=== PATIENT | female | born 2000 | race Caucasian/White ===

== ENCOUNTER → 2022-12-02 09:13 | Outpatient (BNVA) | payer MEDICARE, MEDICAID, SELFPAY | PROVIDERS: PCP Pediatrics; Visit Provider Urology | DX: K92.9 Disease of digestive system, unspecified (principal); N39.9 Disorder of urinary system, unspecified | CPT/HCPCS: 99202 ==

== ENCOUNTER 2023-04-22 08:16 | Outpatient (AMB) | payer MEDICARE, MEDICAID, SELFPAY ==
--- NOTE | 2023-04-22 08:16 | MHC.OFFVIS ---
Intake Intake Visit Reasons: Incontinence Intake Note: Patient presents for tele visit for incontinence ? retention Current Medication: Doxazosin Blood Thinners: none *patient is non verbal Box Sealing Machine Operator Required: Yes Box Sealing Machine Operator Name: Belinda Accompanied by: Mother Allergies adhesive [ADHESIVE] Allergy (Unknown, Unverified 04/22/23 08:16) HIVES amoxicillin [From AUGMENTIN] Allergy (Unknown, Unverified 04/22/23 08:16) DIARRHEA clavulanic acid [From AUGMENTIN] Allergy (Unknown, Unverified 04/22/23 08:16) DIARRHEA fluoxetine [From PROZAC] Adverse Reaction (Unknown, Unverified 04/22/23 08:16) BEHAVIORAL CHANGES HPI HPI Comments History of Present Illness Details Karen is a nonverbal developmentally delayed female. Accompanied by her parents. She is a patient of . She is seen for the following urologic conditions - dysfunctional elimination syndrome Telemedicine Evaluation 15 min Consultation [employer] attempted Dysfunctional elimination syndrome Longstanding - background of developmental delay with nonverbal presentation and possible cerebral palsy Estimated developmental age 18 months to 1 years Primarily constipation in nature Has episodes of difficulty with urination - with holding Appear to be temporally related to 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 low-dose doxazosin pill which can be crushed and baclofen for muscle relaxation To be used on occasions when she appears to have exacerbation of pelvic floor spasm [facility] Medical History (Updated 04/22/23 @ 09:04 by Rashaun Swenson MD) Urinary disorder Diplegic cerebral palsy Autism Genetic disorder Review of Systems Const All systems reviewed & are unremarkable except as noted in HPI and below Reports no additional complaints Resp Reports no additional complaints GI Reports no additional complaints Reports as per HPI Musc Reports no additional complaints Physical Exam Telemedicine evaluation Appropriate responses Regular breathing rate and rhythm HEENT Head: Yes normal to inspection Ears: hearing grossly normal bilaterally Eyes General: appearance normal, both eyes and all related structures Neck Neck: Yes normal visual inspection Chest Chest palpation & inspection: normal inspection of the chest Resp Effort & Inspection: normal respiratory effort and able to speak in complete sentences Assessment & Plan Assessment & Plan (1) Dysfunctional elimination syndrome: Code(s): K92.9 - Disease of digestive system, unspecified; N39.9 - Disorder of urinary system, unspecified (2) Urinary disorder: Code(s): N39.9 - Disorder of urinary system, unspecified Plan 6m f/u Medications: Refilled doxazosin Used when inability to urinate 2 mg PO BEDTIME 90 days PRN 90 tabs 2RF retention K92.9 - Disease of digestive system, unspecified, N39.9 - Disorder of urinary system, unspecified Patient Instructions: Imaging studies, laboratory and physical exam results were discussed and reviewed in detail. No major barriers to patient understanding were identified. An opportunity to ask questions regarding the treatment plan was provided. All questions were answered. The patient expressed understanding and agreement with the above treatment plan. The patient is aware they should contact our office by phone for worsening of their current condition or the appearance of new urologic symptoms. Compliance is encouraged with any medications and followup testing that is ordered. It is a privilege to participate in the urologic care of your patient. If you have any questions or concerns regarding treatment for the above conditions, or other urologic issues, please do not hesitate to contact me. The office telephone contact is [phone]. This note is constructed using voice recognition software. While every effort has been made to ensure accuracy slate splitting supervisor errors may have been included. Yours sincerely, Dr Rashaun Swenson MD, [facility] - Urology Providers of Expert, Compassionate Care for the Genitourinary System Telehealth Telehealth Location of provider rendering services: practice address Location of patient: address on file Patient Identification confirmed using: Name, : Yes Telehealth method: voice only Patient verbally consented to treatment: Yes Patient verbally consented to billing insurance company: Yes Patient informed of any privacy concerns related to visit: Yes Coding Level of Care Code Tele Est Pt Level 3 (24144) Diagnoses Dysfunctional elimination syndrome K92.9; N39.9 Urinary disorder N39.9
== END 2023-04-22 09:15 | disposition home or self-care (01) ==
LOC: HO.HUSH 08:16
PROVIDERS: PCP Pediatrics; Visit Provider Urology
DX: K92.9 Disease of digestive system, unspecified (principal); N39.9 Disorder of urinary system, unspecified
CPT/HCPCS: 99442

== ENCOUNTER → 2023-04-22 08:16 | Outpatient (BNVA) | payer MEDICARE, MEDICAID, SELFPAY | PROVIDERS: PCP Pediatrics; Visit Provider Urology ==

== ENCOUNTER 2023-10-10 16:47 | Emergency (ER) | payer MEDICARE, MEDICAID, SELFPAY ==
--- NOTE | 2023-10-10 17:12 | ED_ITS ---
HPI - General Adult General Chief complaint: Urogenital-Female Stated complaint: hasn't voided in 24 hrs Time Seen by Provider: 10/10/23 18:18 Source: family Mode of arrival: wheelchair Limitations: altered mental status History of Present Illness HPI narrative: Patient with dysfunctional elimination syndrome nonverbal brought by family as the noticed that patient dependent not wet for last 24 hours this has happened in the past and patient just urinated after that per family patient is drinking fluids no vomiting no diarrhea bladder scan done in the ER showed 108 cc urine Related Data Home Medications Medication Instructions Recorded Confirmed clonidine HCl 0.2 mg tablet 0.2 mg PO BEDTIME 12/02/22 lorazepam 0.5 mg tablet 0.5 mg PO BID 12/02/22 nirmatrelvir 300 mg (150 mg 3 ea PO BID 12/02/22 x2)-ritonavir 100 mg tablet,dose pack (Paxlovid) norethindrone acetate 1 mg-ethinyl 1 tab PO DAILY 12/02/22 estradiol 20 mcg tablet (Junel) sertraline 50 mg tablet 50 mg PO DAILY 04/22/23 sumatriptan succinate 50 mg tablet mg PO 04/22/23 Previous Rx's Medication Instructions Recorded baclofen 5 mg tablet 5 mg PO Q12H PRN retention 30 days 12/02/22 #60 tabs doxazosin 2 mg tablet 2 mg PO BEDTIME PRN retention 90 04/22/23 days #90 tabs Allergies Allergy/AdvReac Type Severity Reaction Status Date / Time adhesive [ADHESIVE] Allergy Unknown HIVES Unverified 04/22/23 08:16 amoxicillin [From AUGMENTIN] Allergy Unknown DIARRHEA Unverified 04/22/23 08:16 clavulanic acid Allergy Unknown DIARRHEA Unverified 04/22/23 08:16 [From AUGMENTIN] fluoxetine [From PROZAC] AdvReac Unknown BEHAVIORAL Unverified 04/22/23 08:16 CHANGES Review of Systems 2 Review of Systems: Yes Unobtainable due to mental status PMFSH Past Medical History Medical History Urinary disorder Diplegic cerebral palsy Autism Genetic disorder Social History Social History Smoked in Last 30 Days: No Use of substances other than those prescribed or required for medical reasons: No Advance Directives: No Advance Directives Information Provided: No Patient : No Physical Exam ED Vital Signs: Vital Signs - 24 hr 10/10/23 17:13 10/10/23 19:49 10/10/23 21:43 Temperature 97.8 F 97.5 F 97.5 F Pulse Rate 116 H 101 H 90 Respiratory Rate 20 18 16 Blood Pressure 128/86 144/90 H 121/79 Pulse Oximetry 96 99 100 Oxygen Delivery Method Room Air Room Air Room Air 10/10/23 21:43 Temperature 97.5 F Pulse Rate 90 Respiratory Rate 16 Blood Pressure 121/79 Pulse Oximetry 100 Oxygen Delivery Method Room Air BMI result Body Mass Index 21.9 Appearance: Alert. Nonverbal mentally challenged No acute distress. ENT: Pharynx normal. Oral Mucosa moist Neck: Normal inspection. Neck supple. CVS: Normal heart rate and rhythm. Pulses normal. Respiratory: No respiratory distress. Equal air entry bilateral, Abdomen: Soft and nontender. Bowel sounds are present, no mass palpable, no CVA tenderness Skin: Skin warm and dry. Normal skin color. Normal skin turgor. Neuro: Oriented X 3. No motor deficit. Course Course Course Narrative: This is a rapid medical exam: Additional HPI, ROS, PE not included below will be deferred to primary provider. Patient is a 23-year-old nonverbal developmentally delayed female with history of cerebral palsy, autism, dysfunctional elimination syndrome presenting to the ED with father who reports that patient is followed by Dr. Swenson, was recently started on doxazosin. No urine output for 24 hours. Patient awake all night, having increased negative behaviors per dad. He denies fevers. States patient is on OCPs to eliminate her period, but has had breakthrough bleeding this week. Plan: UA, labs Medications Administered Discontinued Medications Generic Name Dose Route Start Last Admin Trade Name Freq PRN Reason Stop Dose Admin Sodium Chloride 1,000 mls @ 999 mls/hr 10/10/23 18:34 10/10/23 21:30 Ns IV 10/10/23 19:34 Infused .Q1H1M ONE Infusion Medical Decision Making Medical Decision Making [facility] Narrative: Patient with decreased urine output with stable labs was given IV fluids and p.o. fluid urine in the ER discharge patient home advised patient to keep child hydrated Lab Data [facility] Lab Attestation statement: I reviewed the patient's lab results. 10/10/23 17:58 10/10/23 17:58 Labs: Lab Results 10/10/23 Range/Units 17:58 WBC 12.1 H (4.8-10.8) X10*3/uL RBC 4.43 (4.20-5.50) X10*6/uL Hgb 9.9 L (12.0-16.0) g/dl Hct 30.5 L (37.0-47.0) % MCV 68.8 L (80.0-98.0) fL MCH 22.3 L (27.0-33.0) pg MCHC 32.5 (31.0-35.0) g/dl RDW 16.6 H (11.0-16.0) % Plt Count 241 (160-400) X10*3/uL MPV 9.9 (9.4-12.3) fL Immature Gran % (Auto) 0.7 H (0.0-0.4) % Neut % (Auto) 81.0 H (45-73) % Lymph % (Auto) 11.7 L (20-40) % Ross % (Auto) 6.0 (2-11) % Eos % (Auto) 0.3 (0-4) % Baso % (Auto) 0.3 (0-2) % Lymph # (Auto) 1.4 (1.2-4.9) X10*3/uL Ross # (Auto) 0.7 (0.1-1.2) X10*3/uL Eos # (Auto) 0.0 (0.0-0.4) X10*3/uL Baso # (Auto) 0.0 (0.0-0.2) X10*3/uL Abs Immat Gran (auto) 0.09 H (0.00-0.03) X10*3/uL Absolute Neuts (auto) 9.8 H (2.0-8.3) x10*3/uL Absolute Nucleated RBC 0.000 (0.0-0.012) X10*3/uL Nucleated RBC % (auto) 0.0 (0.0-0.2) /100WBC Sodium 140 (135-145) mmol/L Potassium 3.3 (3.3-5.1) mmol/L Chloride 109 H (96-108) mmol/L Carbon Dioxide 21 L (22-29) mmol/L Anion Gap 13 (12-20) BUN 16 (9-16) mg/dL Creatinine 0.65 (0.5-1.4) mg/dL Estim Creat Clear Calc 99.8 Estimated GFR > 60 Random Glucose 109 (60-115) mg/dL Calcium 9.0 (8.4-10.2) mg/dL Total Bilirubin 0.6 (0.0-1.0) mg/dL AST 13 (5-31) U/L ALT 12 (0-31) U/L Alkaline Phosphatase 74 (39-117) U/L Total Protein 6.7 (6.5-8.0) g/dL Albumin 3.9 (3.5-5.0) g/dL Discharge Plan Discharge Clinical Impression: Acute urinary retention Patient Disposition: Home, Self-Care Instructions: Acute Urinary Retention in Women (ED) Additional Instructions: Drink plenty of fluid Follow with PCP as needed Prescriptions: No Action norethindrone ac-eth estradiol [08/14 ()] 1-20 mg-mcg tablet 1 tab PO DAILY lorazepam 0.5 mg tablet 0.5 mg PO BID Paxlovid 300 mg (150 mg x 2)-100 mg tablets,dose pack 3 ea PO BID clonidine HCl 0.2 mg tablet 0.2 mg PO BEDTIME baclofen 5 mg tablet 5 mg PO Q12H PRN (Reason: retention) 30 Days Qty: 60 0RF Rx Instructions: Two used for 2 or 3 days when pelvic floor spasm sertraline 50 mg tablet 50 mg PO DAILY sumatriptan succinate 50 mg tablet PO doxazosin 2 mg tablet 2 mg PO BEDTIME PRN (Reason: retention) 90 Days Qty: 90 2RF Rx Instructions: Used when inability to urinate Interventions: ED Discharge Assessment Last Done: 10/10/23 21:43 Discharge Date/Time: 10/10/23 21:44
[2023-10-10 17:13] VITALS: BP 128/86; PULSE 116; RESP 20; TEMP 36.6; O2SAT 96; BMI 21.9
[2023-10-10 18:03] LABS: MANUAL DIFF FLAG NO
[2023-10-10 18:04] LABS: Basophils Percent Auto 0.3 % (0-2); Eosinophils Percent Auto 0.3 % (0-4); Hematocrit 30.5 % (37.0-47.0); Hemoglobin 9.9 g/dl (12.0-16.0); Imm Gran Abs Auto 0.09 X10*3/uL (0.00-0.03); Imm Gran Pct Auto 0.7 % (0.0-0.4); Lymphocytes Absolute Auto 1.4 X10*3/uL (1.2-4.9); Lymphocytes Percent Auto 11.7 % (20-40); Mean Corpuscular HGB Conc 32.5 g/dl (31.0-35.0); Mean Corpuscular Hemoglobin 22.3 pg (27.0-33.0); Mean Corpuscular Volume 68.8 fL (80.0-98.0); Mean Platelet Volume 9.9 fL (9.4-12.3); Monocytes Absolute Auto 0.7 X10*3/uL (0.1-1.2); Neutrophils Absolute Auto 9.8 x10*3/uL (2.0-8.3); Platelet Count 241 X10*3/uL (160-400); Red Blood Count 4.43 X10*6/uL (4.20-5.50); Red Cell Distribution Width 16.6 % (11.0-16.0); White Blood Count 12.1 X10*3/uL (4.8-10.8)
[2023-10-10 18:28] LABS: Alanine Aminotransferase 12 U/L (0-31); Albumin Level 3.9 g/dL (3.5-5.0); Alkaline Phosphatase 74 U/L (39-117); Anion Gap 13 (12-20); Aspartate Amino Transferase 13 U/L (5-31); Bilirubin Total 0.6 mg/dL (0.0-1.0); Blood Urea Nitrogen 16 mg/dL (9-16); Carbon Dioxide 21 mmol/L (22-29); Chloride 109 mmol/L (96-108); Creatinine Clr Calc Pharmacy 99.8; Estimated Glomerular Filt Rate > 60; Glucose Random 109 mg/dL (60-115); Potassium 3.3 mmol/L (3.3-5.1); Sodium 140 mmol/L (135-145); Total Protein 6.7 g/dL (6.5-8.0)
[2023-10-10] MEDS: 0.9 % Sodium Chloride 1,000 ML 999 ML IV (19:31)
--- NOTE | 2023-10-10 19:39 | PC.NURSE ---
this rn assumed care of pt @ 1900. 20g IV placed in L hand pt tolerated well. pt father at bedside to assist with iv placement. IVF infusing
[2023-10-10 19:49] VITALS: BP 144/90; PULSE 101; RESP 18; TEMP 36.4; O2SAT 99
--- NOTE | 2023-10-10 21:20 | PC.NURSE ---
pt able to void, this rn made dr sierra aware. per md plan to discharge
[2023-10-10 21:43] VITALS: BP 121/79; PULSE 90; RESP 16; TEMP 36.4; O2SAT 100
== END 2023-10-10 21:44 | disposition home or self-care (01) ==
PROVIDERS: Registered Nurse Emergency; Emergency Provider Internal Medicine; PCP Pediatrics
DX: R33.9 Retention of urine, unspecified (principal); G80.8 Other cerebral palsy; F84.0 Autistic disorder
CPT/HCPCS: 36415; 80053; 85025; 96360; 96361; 99284

== ENCOUNTER 2023-11-26 11:36 | Outpatient (AMB) | payer MEDICARE, MEDICAID, SELFPAY ==
--- NOTE | 2023-11-26 11:49 | A.OFFVIS_ITS ---
Intake Visit Reasons: 6m follow up Intake Note: Patient is Present for Follow Up Urology Medication: Doxazosin Antibiotic Allergies: Amoxicillin Blood Thinners: Allergies adhesive [ADHESIVE] Allergy (Unknown, Unverified 04/22/23 08:16) HIVES amoxicillin [From AUGMENTIN] Allergy (Unknown, Unverified 04/22/23 08:16) DIARRHEA clavulanic acid [From AUGMENTIN] Allergy (Unknown, Unverified 04/22/23 08:16) DIARRHEA fluoxetine [From PROZAC] Adverse Reaction (Unknown, Unverified 04/22/23 08:16) BEHAVIORAL CHANGES HPI Comments Details: Karen is a nonverbal developmentally delayed female. Accompanied by her parents. She is a patient of . She is seen for the following urologic conditions - dysfunctional elimination syndrome Accompanied by her father Does well with p.r.n. low-dose doxazosin for bladder emptying Understands that many of the issues secondary to high tone pelvic floor Still considering menstrual cycle management Dysfunctional elimination syndrome Longstanding - background of developmental delay with nonverbal presentation and possible cerebral palsy Estimated developmental age 18 months to 3 years Primarily constipation in nature Has episodes of difficulty with urination - with holding Appear to be temporally related to 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 low-dose doxazosin pill which can be crushed and baclofen for muscle relaxation To be used on occasions when she appears to have exacerbation of pelvic floor spasm [facility] Medical History Urinary disorder Diplegic cerebral palsy Autism Genetic disorder Review of Systems Const Denies chills and Denies fever(s) Card Reports no additional complaints and Denies syncope Resp Denies cough GI Denies abdominal pain and Denies heartburn Reports as per HPI and Denies change in libido Neuro Denies syncope Psych Denies change in libido Endo Denies change in libido Physical Exam Const General: cooperative, healthy appearing, comfortable and no acute distress Orientation/consciousness: patient oriented x3 HEENT Face and sinus: Yes normal facial exam Mouth: moist mucous membranes Neck Neck: Yes normal visual inspection, Yes full ROM and Yes trachea midline Chest Chest palpation & inspection: normal inspection of the chest Resp Effort & Inspection: normal respiratory effort, able to speak in complete sentences and no respiratory distress GI Inspection: Yes normal to inspection Back/Spine/Pelvis Cervical Spine: normal cervical lordosis Thoracic/Lumbar Spine: thoracic and lumbar spine normal to inspection Skin General skin exam: no rashes or lesions noted Neuro General: patient oriented x3, gait normal, tone normal and moves all extremities Extrem General: Yes normal to inspection and Yes capillary refill normal Assessment & Plan Assessment & Plan (1) Urinary disorder: Code(s): N39.9 - Disorder of urinary system, unspecified Category: Medical (2) Dysfunctional elimination syndrome: Code(s): K92.9 - Disease of digestive system, unspecified; N39.9 - Disorder of urinary system, unspecified Category: Medical Plan Refill medications Six-month follow-up Patient Instructions: Imaging studies, laboratory and physical exam results were discussed and reviewed in detail. No major barriers to patient understanding were identified. An opportunity to ask questions regarding the treatment plan was provided. All questions were answered. The patient expressed understanding and agreement with the above treatment plan. The patient is aware they should contact our office by phone for worsening of their current condition or the appearance of new urologic symptoms. Compliance is encouraged with any medications and followup testing that is ordered. It is a privilege to participate in the urologic care of your patient. If you have any questions or concerns regarding treatment for the above conditions, or other urologic issues, please do not hesitate to contact me. The office telephone contact is [phone]. This note is constructed using voice recognition software. While every effort has been made to ensure accuracy rn cvicu errors may have been included. Yours sincerely, Dr Rashaun Swenson MD, [facility] - Urology Providers of Expert, Compassionate Care for the Genitourinary System Coding Level of Care Code Est Pt Level 3 (66493) Diagnoses Urinary disorder N39.9 Dysfunctional elimination syndrome K92.9; N39.9
== END 2023-11-26 12:17 | disposition home or self-care (01) ==
PROVIDERS: PCP Pediatrics; Visit Provider Urology
DX: N39.9 Disorder of urinary system, unspecified (principal); K92.9 Disease of digestive system, unspecified
CPT/HCPCS: 99213

== ENCOUNTER → 2023-11-26 11:36 | Outpatient (BNVA) | payer MEDICARE, MEDICAID, SELFPAY | PROVIDERS: PCP Pediatrics; Visit Provider Urology | DX: N39.9 Disorder of urinary system, unspecified (principal); K92.9 Disease of digestive system, unspecified | CPT/HCPCS: 99212 ==

== ENCOUNTER 2024-04-06 11:51 | Outpatient (AMB) | payer MEDICARE, MEDICAID, SELFPAY ==
--- NOTE | 2024-04-06 11:55 | MHC.OFFWIV ---
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 Started Patient Tobacco Use Status: Never used Tobacco Allergies adhesive [ADHESIVE] Allergy (Unknown, Verified 04/06/24 11:56) HIVES amoxicillin [From AUGMENTIN] Allergy (Unknown, Verified 04/06/24 11:56) DIARRHEA clavulanic acid [From AUGMENTIN] Allergy (Unknown, Verified 04/06/24 11:56) DIARRHEA fluoxetine [From PROZAC] Adverse Reaction (Unknown, Verified 04/06/24 11:56) BEHAVIORAL CHANGES Do you need a note to return to daycare/school/sports/work: No HPI HPI Comments History of Present Illness Details 23-year-old female who is nonverbal here with her parents and her twin sister complaining of a cough that has not gone away for the last 10 days. Her sister has also been sick as well as her mother and father. Her sister started taking a Z-Eleuterio a few days ago and his feeling better and her cough is subsiding. Patient's mother denies any nausea vomiting diarrhea or fevers or hearing her wheeze or look like she is in respiratory distress at all. [facility] Medical History Urinary disorder Diplegic cerebral palsy Autism Genetic disorder Social History Patient Tobacco Use Status: Never used Tobacco Review of Systems Const All systems reviewed & are unremarkable except as noted in HPI and below Physical Exam Vital Signs: Last Vital Signs Temp 98.1 F 04/06/24 11:56 Pulse 102 H 04/06/24 11:56 BP 114/82 04/06/24 11:56 Pulse Ox 98 04/06/24 11:56 Oxygen Delivery Method Room Air 04/06/24 11:56 Const General: cooperative, healthy appearing, comfortable and no acute distress Limitations: wheelchair and other limitations (nonverbal) HEENT Head: Yes normal to inspection Ears: hearing grossly normal bilaterally and external ears normal General nose exam: Normal external nose present, Normal nares present and No nasal discharge present Face and sinus: Yes normal facial exam Eyes General: appearance normal, both eyes and all related structures Neck Neck: Yes normal visual inspection Resp Effort & Inspection: normal respiratory effort, able to speak in complete sentences, no respiratory distress, not tachypneic, no tripod positioning and no use of accessory muscles Auscultation: clear to auscultation bilaterally Cardio Rate: regular rate Rhythm: regular rhythm Heart sounds: normal S1 and S2 Skin General skin exam: no rashes or lesions noted Extrem General: Yes normal to inspection and Yes no clubbing, cyanosis or edema Assessment & Plan Assessment & Plan (1) Atypical pneumonia: Code(s): J18.9 - Pneumonia, unspecified organism Plan: Sent liquid azithromycin to pharmacy. Plan See above Medications: New azithromycin take 12.5 mL (500 mg) by mouth today (day 1), then 6.25 mL (250 mg) daily for 4 days (days 2-5) PO 40 mL 0RF Coding Level of Care Code New Pt Level 3 (72043) Diagnoses Atypical pneumonia J18.9
[2024-04-06 11:56] VITALS: BP 114/82; PULSE 102; TEMP 36.7; O2SAT 98
== END 2024-04-06 12:39 | disposition home or self-care (01) ==
PROVIDERS: PCP Pediatrics; Visit Provider Physician Assistant
DX: J18.9 Pneumonia, unspecified organism (principal)
CPT/HCPCS: 99203

== ENCOUNTER 2024-05-27 02:10 | Emergency (ER) | payer MEDICARE, MEDICAID, SELFPAY ==
--- NOTE | ~2024-05-27 | XR_ITS ---
EXAMINATION: XR ABDOMEN KUB CLINICAL INDICATION: Constipation. Abdominal pain. COMPARISON: None available. TECHNIQUE: AP view of the abdomen. FINDINGS: Visualized lung bases are clear. Scattered bowel gas is noted in nondistended intestinal segments. A moderate quantity of stool is noted in the ascending colon. Gas is noted in descending colon with a mild quantity of stool noted in the descending colon. No dystrophic calcifications are definitive urolithiasis identified. XR/XR KUB IMPRESSION: *Moderate quantity of stool within the ascending colon. No intestinal dilatation to specifically suggest obstruction. Electronically signed by: Brent Garcia MD 05/27/2024 04:06 AM EDT
--- NOTE | 2024-05-27 02:21 | ED.GENADULT ---
HPI - General Adult General Chief complaint: General Medical Stated complaint: Behavioral, HX several Autism Time Seen by Provider: 05/27/24 02:21 Source: family Mode of arrival: EMS Limitations: other (Autism) History of Present Illness ED Provider: rigo CARIAS narrative: Patient is severely autistic brought by family for increased agitation which usually happens when she is constipated patient has had small bowel movement earlier today very difficult to say about making her agitated Related Data Home Medications ?Medication ?Instructions ?Recorded ?Confirmed clonidine HCl 0.2 mg tablet 0.2 mg PO BEDTIME 12/02/22 lorazepam 0.5 mg tablet 0.5 mg PO BID 12/02/22 norethindrone acetate 1 mg-ethinyl 1 tab PO DAILY 12/02/22 estradiol 20 mcg tablet (Junel) montelukast 5 mg chewable tablet 5 mg PO DAILY 04/06/24 ondansetron 4 mg disintegrating 4 mg PO Q8H PRN 04/06/24 tablet rimegepant 75 mg disintegrating mg PO 04/06/24 tablet (Nurtec ODT) sertraline 25 mg tablet mg PO 04/06/24 Previous Rx's ?Medication ?Instructions ?Recorded doxazosin 2 mg tablet 2 mg PO BEDTIME PRN retention 90 04/22/23 days #90 tabs azithromycin 200 mg/5 mL oral See Rx Instructions PO .COMPLEX 04/06/24 suspension #40 mL Allergies Allergy/AdvReac Type Severity Reaction Status Date / Time adhesive [ADHESIVE] Allergy Unknown HIVES Verified 05/27/24 02:27 amoxicillin [From AUGMENTIN] Allergy Unknown DIARRHEA Verified 05/27/24 02:27 clavulanic acid Allergy Unknown DIARRHEA Verified 05/27/24 02:27 [From AUGMENTIN] fluoxetine [From PROZAC] AdvReac Unknown BEHAVIORAL Verified 05/27/24 02:27 CHANGES Review of Systems Review of Systems: Yes Unobtainable due to mental status PMFSH Past Medical History Medical History Urinary disorder Diplegic cerebral palsy Autism Genetic disorder Social History Social History Patient Tobacco Use Status: Never used Tobacco Advance Directives: No Advance Directives Information Provided: No Do you have a plan to hurt others: No Plan Physical Exam ED Vital Signs: Vital Signs - 24 hr 05/27/24 04:45 Temperature 98.1 F Pulse Rate 88 Respiratory Rate 20 Blood Pressure 126/78 Pulse Oximetry 97 Oxygen Delivery Method Room Air BMI result Body Mass Index 20.3 Appearance: Alert. Severely autistic ENT: Pharynx normal. Oral Mucosa moist Neck: Normal inspection. Neck supple. CVS: Normal heart rate and rhythm. Pulses normal. Respiratory: No respiratory distress. Equal air entry bilateral, no wheezing/rales/rhonchi Skin: Skin warm and dry. Normal skin color. Normal skin turgor. Extremities: No lower extremity edema. Medications Administered Discontinued Medications Generic Name Dose Route Start Last Admin Trade Name Freq PRN Reason Stop Dose Admin Lorazepam 1 mg 05/27/24 02:24 05/27/24 02:31 Lorazepam 2 Mg/Ml Vial IM 05/27/24 02:25 1 mg STAT STA Administration Medical Decision Making Medical Decision Making MDM Narrative: Patient is autistic with constipation patient had stool softener suppositories at home will use it at home Independent Interpretation I performed an independent interpretation of an: Plain X-Ray Discharge Plan Discharge Clinical Impression: Chronic constipation Patient Disposition: Home, Self-Care Instructions: Constipation (ED) Additional Instructions: Continue stool softener and milk of magnesia Follow up with your PCP Prescriptions: No Action Nurtec ODT 75 mg tablet,disintegrating PO sertraline 25 mg tablet PO ondansetron 4 mg tablet,disintegrating 4 mg PO Q8H PRN montelukast 5 mg tablet,chewable 5 mg PO DAILY azithromycin 200 mg/5 mL suspension for reconstitution See Rx Instructions PO .COMPLEX Qty: 40 0RF Rx Instructions: take 12.5 mL (500 mg) by mouth today (day 1), then 6.25 mL (250 mg) daily for 4 days (days 2-5) PO norethindrone ac-eth estradiol [08/14 (21)] 1-20 mg-mcg tablet 1 tab PO DAILY lorazepam 0.5 mg tablet 0.5 mg PO BID clonidine HCl 0.2 mg tablet 0.2 mg PO BEDTIME doxazosin 2 mg tablet 2 mg PO BEDTIME PRN (Reason: retention) 90 Days Qty: 90 2RF Rx Instructions: Used when inability to urinate Interventions: ED Discharge Assessment Last Done: 05/27/24 04:45 Discharge Date/Time: 05/27/24 04:45 Print Language: Bolivian
[2024-05-27 02:24] VITALS: BMI 20.3
[2024-05-27] MEDS: LORazepam 2 MG/ML VIAL 1 MG IM (02:31)
[2024-05-27 04:45] VITALS: BP 126/78; PULSE 88; RESP 20; TEMP 36.7; O2SAT 97
== END 2024-05-27 04:45 | disposition home or self-care (01) ==
PROVIDERS: Emergency Provider Internal Medicine; PCP Urology
DX: K59.09 Other constipation (principal); R45.1 Restlessness and agitation
CPT/HCPCS: 74018; 99282; 99283; J2060

== ENCOUNTER 2024-05-31 20:49 | Emergency (ER) | payer MEDICARE, MEDICAID, SELFPAY ==
--- NOTE | ~2024-05-31 | CT_ITS ---
EXAMINATION: CT ABDOMEN AND PELVIS WITHOUT CONTRAST CLINICAL INFORMATION: Abdominal pain. COMPARISON: None available. TECHNIQUE: Multidetector volumetric imaging was performed from the superior aspect of the liver through the pubic symphysis. Sagittal and coronal reformatted images were obtained on the technologist's workstation. This CT examination was performed using dose optimization techniques as appropriate, variously including the following: *Automated exposure control *Adjustment of mA and/or kV according to patient size (this includes techniques or standardized protocols for targeted exams where dose is matched to indication/reason for exam; i.e. extremities or head) *Use of iterative reconstruction technique DLP: 438 mGy-cm FINDINGS: LUNG BASES: The visualized lung bases are unremarkable. LIVER, GALLBLADDER, AND BILIARY TREE: The liver is normal in size, shape, and attenuation. No focal hepatic lesion or biliary ductal dilatation is present. The gallbladder is unremarkable with no evidence of radiopaque gallstones, gallbladder wall thickening, or obvious pericholecystic inflammatory changes. PANCREAS: Unremarkable. SPLEEN: Unremarkable. ADRENAL GLANDS: Unremarkable. KIDNEYS AND URETERS: The kidneys are normal in size, shape, and attenuation. No hydronephrosis, hydroureter, or calculi seen. No perinephric stranding. BLADDER: Unremarkable. GASTROINTESTINAL TRACT: There is retained stool. There are prominent fluid-filled small bowel loops. The appendix is visualized and is within normal limits. There is mild thickening of the visualized distal esophagus. ABDOMINAL WALL: No significant hernia is appreciated. LYMPH NODES: Normal. VASCULAR: Unremarkable. PELVIC VISCERA: Unremarkable. OSSEOUS STRUCTURES: Unremarkable. CT/CT abdomen pelvis wo IV con IMPRESSION: 1. Prominent fluid-filled small bowel loops. This is nonspecific and could be related to enteritis. 2. Retained stool. 3. Mild thickening of the visualized distal esophagus. Consider esophagitis. Fleischner guidelines were followed. Electronically signed by: David Snow MD 06/01/2024 02:23 AM ALLIE
[2024-05-31 21:01] VITALS: BP 112/62; BP 124/62; PULSE 104; PULSE 92; RESP 16; TEMP 36.6; O2SAT 96; O2SAT 99; BMI 18.5
--- NOTE | 2024-05-31 23:05 | ED_ITS ---
HPI - General Adult General Chief complaint: General Medical Stated complaint: psych/poss GI, hx autism, cerebralpalsy, nonverbal Time Seen by Provider: 05/31/24 22:15 History of Present Illness HPI narrative: Patient is a 24-year-old female with a history of being mentally challenged. Baseline nonverbal. Got very aggressive with patient's father today. Per father this is very unlike her. Usually there is something wrong. Patient was given a mg of Ativan prior to arrival. Subsequently fell asleep. Currently has no complaints. There has been no change in p.o. intake per family. Patient had bowel movements on a regular basis. Was seen here about a week ago at that time thought to have constipation. Related Data Home Medications ?Medication ?Instructions ?Recorded ?Confirmed clonidine HCl 0.2 mg tablet 0.2 mg PO BEDTIME 12/02/22 lorazepam 0.5 mg tablet 0.5 mg PO BID 12/02/22 norethindrone acetate 1 mg-ethinyl 1 tab PO DAILY 12/02/22 estradiol 20 mcg tablet (Junel) montelukast 5 mg chewable tablet 5 mg PO DAILY 04/06/24 ondansetron 4 mg disintegrating 4 mg PO Q8H PRN 04/06/24 tablet rimegepant 75 mg disintegrating mg PO 04/06/24 tablet (Nurtec ODT) sertraline 25 mg tablet mg PO 04/06/24 Previous Rx's ?Medication ?Instructions ?Recorded doxazosin 2 mg tablet 2 mg PO BEDTIME PRN retention 90 04/22/23 days #90 tabs azithromycin 200 mg/5 mL oral See Rx Instructions PO .COMPLEX 04/06/24 suspension #40 mL Allergies Allergy/AdvReac Type Severity Reaction Status Date / Time adhesive [ADHESIVE] Allergy Unknown HIVES Verified 05/31/24 21:12 amoxicillin [From AUGMENTIN] Allergy Unknown DIARRHEA Verified 05/31/24 21:12 clavulanic acid Allergy Unknown DIARRHEA Verified 05/31/24 21:12 [From AUGMENTIN] fluoxetine [From PROZAC] AdvReac Unknown BEHAVIORAL Verified 05/31/24 21:12 CHANGES Review of Systems 2 Review of Systems: Positive episodes of agitation PMFSH Past Medical History Attestation statement: The following information was validated with the patient. Medical History Urinary disorder Diplegic cerebral palsy Autism Genetic disorder Social History Social History Patient Tobacco Use Status: Never used Tobacco Smoked in Last 30 Days: No Use of substances other than those prescribed or required for medical reasons: No Advance Directives: No Advance Directives Information Provided: No Patient : No Physical Exam ED Vital Signs: Vital Signs - 24 hr 05/31/24 21:01 06/01/24 00:16 Temperature 98 F 97.9 F Pulse Rate 92 81 Respiratory Rate 16 16 Blood Pressure 112/62 137/84 Pulse Oximetry 96 97 Oxygen Delivery Method Room Air Room Air BMI result Body Mass Index 18.5 Appearance: Alert. No acute distress. Eyes: Pupils equal, round and reactive to light. ENT: Pharynx normal. Neck: Normal inspection. Neck supple. No lymph nodes noted. No crepitus CVS: Normal heart rate and rhythm. Pulses normal. Normal S1 and S2 Respiratory: No respiratory distress. Breath sounds normal. No Wheezing. No rales Abdomen: Soft and nontender. No rigidity. No distention. good BS x4 Skin: Skin warm and dry. Normal skin color. Normal skin turgor. Extremities: No lower extremity edema. Neurovascular intact to all extremities. No Lacerations. No Rash Neuro: Arousable contracted Medications Administered Discontinued Medications Generic Name Dose Route Start Last Admin Trade Name Gerardoq PRN Reason Stop Dose Admin Lorazepam 1 mg 05/31/24 23:04 05/31/24 23:13 Lorazepam 1 Mg Tablet PO 05/31/24 23:05 1 mg ONCE ONE Administration Lorazepam 0.5 mg 06/01/24 00:07 06/01/24 00:14 Lorazepam 2 Mg/Ml Vial IM 06/01/24 00:08 0.5 mg ONCE ONE Administration Medical Decision Making Medical Decision Making MDM Narrative: Patient sleeping in the emergency department. No acute distress. Given some Ativan just prior to getting blood drawn. Her test was negative no related issue. Patient's white count is 10. Hemoglobin is 10.8 proximally baseline. Patient's electrolytes are unremarkable. LFTs are normal no evidence for biliary issues. Lipase is 22 no evidence of pancreatitis. COVID flu RSV were all negative. CT scan of the abdomen pelvis was done. The results are still pending. Will try to obtain urine Differential Diagnosis Differential Diagnoses: The differential diagnosis associated with the presentation includes Constipation, urinary tract infection Admission/Observation Consideration of admission/observation: Escalation of care including admission/observation considered Lab Data MDM Lab Attestation statement: I reviewed the patient's lab results. 06/01/24 00:02 06/01/24 00:02 Labs: Lab Results 06/01/24 Range/Units 00:02 WBC 10.1 (4.8-10.8) X10*3/uL RBC 4.71 (4.20-5.50) X10*6/uL Hgb 10.8 L (12.0-16.0) g/dl Hct 33.7 L (37.0-47.0) % MCV 71.5 L (80.0-98.0) fL MCH 22.9 L (27.0-33.0) pg MCHC 32.0 (31.0-35.0) g/dl RDW 18.6 H (11.0-16.0) % Plt Count 286 (160-400) X10*3/uL MPV 9.8 (9.4-12.3) fL Immature Gran % (Auto) 0.3 (0.0-0.4) % Neut % (Auto) 69.0 (45-73) % Lymph % (Auto) 23.6 (20-40) % Patrick % (Auto) 5.6 (2-11) % Eos % (Auto) 0.9 (0-4) % Baso % (Auto) 0.6 (0-2) % Lymph # (Auto) 2.4 (1.2-4.9) X10*3/uL Patrick # (Auto) 0.6 (0.1-1.2) X10*3/uL Eos # (Auto) 0.1 (0.0-0.4) X10*3/uL Baso # (Auto) 0.1 (0.0-0.2) X10*3/uL Abs Immat Gran (auto) 0.03 (0.00-0.03) X10*3/uL Absolute Neuts (auto) 6.9 (2.0-8.3) x10*3/uL Absolute Nucleated RBC 0.000 (0.0-0.012) X10*3/uL Nucleated RBC % (auto) 0.0 (0.0-0.2) /100WBC Sodium 136 (135-145) mmol/L Potassium 3.8 (3.3-5.1) mmol/L Chloride 108 (96-108) mmol/L Carbon Dioxide 21 L (22-29) mmol/L Anion Gap 11 L (12-20) BUN 11 (9-16) mg/dL Creatinine 0.62 (0.5-1.4) mg/dL Estim Creat Clear Calc 96.1 Estimated GFR > 60 Random Glucose 94 (60-115) mg/dL Calcium 8.7 (8.4-10.2) mg/dL Total Bilirubin 0.5 (0.0-1.0) mg/dL Direct Bilirubin 0.1 (0.0-0.5) mg/dL AST 27 (5-31) U/L ALT 20 (0-31) U/L Alkaline Phosphatase 59 (39-117) U/L Total Protein 6.8 (6.5-8.0) g/dL Albumin 3.8 (3.5-5.0) g/dL Lipase 22 (8-78) U/L Beta HCG, Quant < 2 mIU/mL Influenza Type A (PCR) NEGATIVE (Negative) Influenza Type B (PCR) NEGATIVE (Negative) RSV RNA Qual (PCR) NEGATIVE (Negative) SARS-CoV-2 RNA (RT-PCR) NEGATIVE (Negative) External Record Review Previous records evaluated including previous workup. Discharge Plan Discharge Clinical Impression: Colic in adult Patient Disposition: Still a Patient Instructions: Abdominal Pain (ED) Prescriptions: No Action Nurtec ODT 75 mg tablet,disintegrating PO sertraline 25 mg tablet PO ondansetron 4 mg tablet,disintegrating 4 mg PO Q8H PRN montelukast 5 mg tablet,chewable 5 mg PO DAILY azithromycin 200 mg/5 mL suspension for reconstitution See Rx Instructions PO .COMPLEX Qty: 40 0RF Rx Instructions: take 12.5 mL (500 mg) by mouth today (day 1), then 6.25 mL (250 mg) daily for 4 days (days 2-5) PO norethindrone ac-eth estradiol [08/14 (21)] 1-20 mg-mcg tablet 1 tab PO DAILY lorazepam 0.5 mg tablet 0.5 mg PO BID clonidine HCl 0.2 mg tablet 0.2 mg PO BEDTIME doxazosin 2 mg tablet 2 mg PO BEDTIME PRN (Reason: retention) 90 Days Qty: 90 2RF Rx Instructions: Used when inability to urinate Referrals: Bernardo Torrez MD [Primary Care Provider] - 06/06/24 Print Language: Kosovan
[2024-05-31] MEDS: LORazepam 1 MG TABLET PO (23:13)
[2024-06-01 00:12] LABS: MANUAL DIFF FLAG NO
[2024-06-01] MEDS: LORazepam 2 MG/ML VIAL 0.5 MG IM (00:14)
[2024-06-01 00:16] VITALS: BP 137/84; PULSE 81; RESP 16; TEMP 36.6; O2SAT 97
[2024-06-01 00:16] LABS: Basophils Absolute Auto 0.1 X10*3/uL (0.0-0.2); Basophils Percent Auto 0.6 % (0-2); Eosinophils Absolute Auto 0.1 X10*3/uL (0.0-0.4); Eosinophils Percent Auto 0.9 % (0-4); Hematocrit 33.7 % (37.0-47.0); Hemoglobin 10.8 g/dl (12.0-16.0); Imm Gran Abs Auto 0.03 X10*3/uL (0.00-0.03); Imm Gran Pct Auto 0.3 % (0.0-0.4); Lymphocytes Absolute Auto 2.4 X10*3/uL (1.2-4.9); Lymphocytes Percent Auto 23.6 % (20-40); Mean Corpuscular Hemoglobin 22.9 pg (27.0-33.0); Mean Corpuscular Volume 71.5 fL (80.0-98.0); Mean Platelet Volume 9.8 fL (9.4-12.3); Monocytes Absolute Auto 0.6 X10*3/uL (0.1-1.2); Monocytes Percent Auto 5.6 % (2-11); Neutrophils Absolute Auto 6.9 x10*3/uL (2.0-8.3); Platelet Count 286 X10*3/uL (160-400); Red Blood Count 4.71 X10*6/uL (4.20-5.50); Red Cell Distribution Width 18.6 % (11.0-16.0); White Blood Count 10.1 X10*3/uL (4.8-10.8)
[2024-06-01 00:37] LABS: Alanine Aminotransferase 20 U/L (0-31); Albumin Level 3.8 g/dL (3.5-5.0); Alkaline Phosphatase 59 U/L (39-117); Anion Gap 11 (12-20); Aspartate Amino Transferase 27 U/L (5-31); Bilirubin Direct 0.1 mg/dL (0.0-0.5); Bilirubin Total 0.5 mg/dL (0.0-1.0); Blood Urea Nitrogen 11 mg/dL (9-16); Calcium 8.7 mg/dL (8.4-10.2); Carbon Dioxide 21 mmol/L (22-29); Chloride 108 mmol/L (96-108); Creatinine Clr Calc Pharmacy 96.1; Estimated Glomerular Filt Rate > 60; Glucose Random 94 mg/dL (60-115); HCG Quantitative < 2 mIU/mL; Lipase 22 U/L (8-78); Potassium 3.8 mmol/L (3.3-5.1); Sodium 136 mmol/L (135-145); Total Protein 6.8 g/dL (6.5-8.0)
--- NOTE | 2024-06-01 00:53 | PC.NURSE ---
pt still awake and, and bouncing around on the bed. turned off the lights, to try and get her to sleep
[2024-06-01 00:55] LABS: Influenza A PCR NEGATIVE (Negative); Influenza B PCR NEGATIVE (Negative); Resp Syncy Virus RNA Qual PCR NEGATIVE (Negative); SARS COV2 PCR INHOUSE NEGATIVE (Negative)
[2024-06-01 02:59] LABS: Appearance Urine Clear; Color Urine Yellow; Glucose Urine UA Negative (Negative); Leukocyte Esterase Urine Negative (Negative); Nitrite Urine Negative (Negative); PH 6.5 (5.0-9.0); Specific Gravity - Urine 1.025 (1.005-1.025); Urine Blood Negative (Negative); Urine Ketones Trace mg/dL (Negative); Urine Protein Trace mg/dL (Neg-Trace)
[2024-06-01 03:27] LABS: Bacteria Urine None Seen (None Seen); Hyaline Casts Urine 0-2 /LPF (0-2); RBC Urine 0-2 /HPF (0-2); Squamous Epithelial Cell Urine 0-2 /HPF (0-2); WBC Urine 0-5 /HPF (0-5)
[2024-06-01 04:27] VITALS: BP 126/73; PULSE 74; RESP 16; TEMP 36.6; O2SAT 97
== END 2024-06-01 04:29 | disposition home or self-care (01) ==
PROVIDERS: Emergency Provider Emergency Medicine Emergency Medical Services; PCP Pediatrics
DX: R10.84 Generalized abdominal pain (principal); R45.1 Restlessness and agitation; Z03.818 Encounter for observation for suspected exposure to other biological agents ruled out; G80.8 Other cerebral palsy; F84.0 Autistic disorder; R47.01 Aphasia; N39.9 Disorder of urinary system, unspecified; Z79.899 Other long term (current) drug therapy
CPT/HCPCS: 0241U; 36415; 74176; 80048; 80076; 81001; 83690; 84702; 85025; 96372; 99284; J2060

== ENCOUNTER 2024-06-01 11:49 | Outpatient (AMB) | payer MEDICARE, MEDICAID, SELFPAY ==
--- NOTE | 2024-06-01 12:00 | MHC.OFFVIS ---
Intake Visit Reasons: 6m follow up Intake Note: Patient is present for follow up Urology Med:Doxazosin Allergies adhesive [ADHESIVE] Allergy (Unknown, Verified 05/31/24 21:12) HIVES amoxicillin [From AUGMENTIN] Allergy (Unknown, Verified 05/31/24 21:12) DIARRHEA clavulanic acid [From AUGMENTIN] Allergy (Unknown, Verified 05/31/24 21:12) DIARRHEA fluoxetine [From PROZAC] Adverse Reaction (Unknown, Verified 05/31/24 21:12) BEHAVIORAL CHANGES HPI Comments Details: Karen is a nonverbal developmentally delayed female. Accompanied by her parents. She is a patient of . She is seen for the following urologic conditions - dysfunctional elimination syndrome Accompanied by her father Recent aggravation of constipation Appears to be affecting urination They have been using doxazosin p.r.n. Will switch to low-dose daily doxazosin 1 mg Understands that many of the issues secondary to high tone pelvic floor Dysfunctional elimination syndrome Longstanding - background of developmental delay with nonverbal presentation and possible cerebral palsy Estimated developmental age 18 months to 1 years Primarily constipation in nature Has episodes of difficulty with urination - with holding High tone pelvic floor Appear to be temporally related to 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 low-dose doxazosin pill which can be crushed and baclofen for muscle relaxation To be used on occasions when she appears to have exacerbation of pelvic floor spasm PFSH Medical History Urinary disorder Diplegic cerebral palsy Autism Genetic disorder Social History Patient Tobacco Use Status: Never used Tobacco Review of Systems Const Denies chills and Denies fever(s) Card Reports no additional complaints and Denies syncope Resp Denies cough GI Denies abdominal pain and Denies heartburn Reports as per HPI and Denies change in libido Neuro Denies syncope Psych Denies change in libido Endo Denies change in libido Physical Exam Const General: cooperative, healthy appearing, comfortable and no acute distress Orientation/consciousness: patient oriented x3 HEENT Face and sinus: Yes normal facial exam Mouth: moist mucous membranes Neck Neck: Yes normal visual inspection, Yes full ROM and Yes trachea midline Chest Chest palpation & inspection: normal inspection of the chest Resp Effort & Inspection: normal respiratory effort, able to speak in complete sentences and no respiratory distress GI Inspection: Yes normal to inspection Back/Spine/Pelvis Cervical Spine: normal cervical lordosis Thoracic/Lumbar Spine: thoracic and lumbar spine normal to inspection Skin General skin exam: no rashes or lesions noted Neuro General: patient oriented x3, gait normal, tone normal and moves all extremities Extrem General: Yes normal to inspection and Yes capillary refill normal Assessment & Plan Assessment & Plan (1) Dysfunctional elimination syndrome: Code(s): K92.9 - Disease of digestive system, unspecified; N39.9 - Disorder of urinary system, unspecified Category: Medical (2) Urinary disorder: Code(s): N39.9 - Disorder of urinary system, unspecified Category: Medical Plan Decreased doxazosin 1 mg q.h.s. Medications: Changed From doxazosin Used when inability to urinate 2 mg PO BEDTIME 90 days PRN 90 tabs 2RF retention K92.9 - Disease of digestive system, unspecified, N39.9 - Disorder of urinary system, unspecified To doxazosin Use each evening May be crushed 1 mg PO BEDTIME 90 days 90 tabs 1RF retention K92.9 - Disease of digestive system, unspecified, N39.9 - Disorder of urinary system, unspecified Patient Instructions: Imaging studies, laboratory and physical exam results were discussed and reviewed in detail. No major barriers to patient understanding were identified. An opportunity to ask questions regarding the treatment plan was provided. All questions were answered. The patient expressed understanding and agreement with the above treatment plan. The patient is aware they should contact our office by phone for worsening of their current condition or the appearance of new urologic symptoms. Compliance is encouraged with any medications and followup testing that is ordered. It is a privilege to participate in the urologic care of your patient. If you have any questions or concerns regarding treatment for the above conditions, or other urologic issues, please do not hesitate to contact me. The office telephone contact is [phone]. This note is constructed using voice recognition software. While every effort has been made to ensure accuracy consulting sales executive errors may have been included. Yours sincerely, Dr Rashaun Swenson MD, [facility] - Urology Providers of Expert, Compassionate Care for the Genitourinary System Coding Level of Care Code Est Pt Level 3 (38729) Diagnoses Dysfunctional elimination syndrome K92.9; N39.9 Urinary disorder N39.9
== END 2024-06-01 12:17 | disposition home or self-care (01) ==
LOC: HO.HUSH 11:50
PROVIDERS: PCP Pediatrics; Visit Provider Urology
DX: K92.9 Disease of digestive system, unspecified (principal); N39.9 Disorder of urinary system, unspecified
CPT/HCPCS: 99213

== ENCOUNTER → 2024-06-01 11:49 | Outpatient (BNVA) | payer MEDICARE, MEDICAID, SELFPAY | PROVIDERS: PCP Pediatrics; Visit Provider Urology | DX: K92.9 Disease of digestive system, unspecified (principal); N39.9 Disorder of urinary system, unspecified | CPT/HCPCS: 99212 ==

== ENCOUNTER 2024-06-06 07:31 | Observation (INO) | payer MEDICARE, MEDICAID, SELFPAY ==
--- NOTE | ~2024-06-06 | XR_ITS ---
EXAMINATION: XR ABDOMEN KUB CLINICAL INDICATION: 24-year-old female with constipation COMPARISON: CT abdomen from June 06, 2026 TECHNIQUE: AP view of the abdomen. FINDINGS: Seen on the CT scan significant amount of feces in the colon has been resolved. There is nonspecifically dilated loops of small bowel and no evidence of free air XR/XR KUB IMPRESSION: Resolved constipation. Nonspecifically dilated loops of small bowel Electronically signed by: Lazaro Tunrer MD 06/07/2024 11:55 AM [facility]
--- NOTE | ~2024-06-06 | XR_ITS ---
EXAMINATION: XR CHEST CLINICAL INFORMATION: confirm NG tube placement COMPARISON: X-ray dated July 12, 2019 TECHNIQUE: Frontal view of the chest was obtained. FINDINGS: There is an NG tube tip ending in the left upper quadrant abdomen below the left hemidiaphragm. No acute airspace disease. Heart silhouette size is normal. Gas-filled splenic colonic flexure. There is a catheter overlapping the right hemiabdomen not fully included. XR/XR chest 1V IMPRESSION: NG tube probably in the stomach. Electronically signed by: Sujit Connor MD 06/06/2024 11:02 AM [facility] WALTER
--- NOTE | ~2024-06-06 | XR_ITS ---
EXAMINATION: XR CHEST CLINICAL INFORMATION: Enteric tube placement. COMPARISON: Chest radiograph 06/06/2024. TECHNIQUE: Frontal view of the chest was obtained. FINDINGS: A tube projects over the left hemithorax with proximal and distal endings outside of the field of view. An enteric tube is not visualized. Normal appearance of the cardiomediastinal silhouette. No focal consolidation, pleural effusion or pneumothorax. No pulmonary edema. No acute osseous findings. XR/XR chest 1V IMPRESSION: 1. An enteric tube is not visualized, possibly looped in the upper neck. 2. No acute cardiopulmonary findings. Electronically signed by: Megan Ross MD 06/06/2024 09:46 PM EST
--- NOTE | ~2024-06-06 | CT_ITS ---
EXAMINATION: CT ABDOMEN AND PELVIS WITHOUT CONTRAST CLINICAL INFORMATION: Worsening constipation. Concerning obstruction. COMPARISON: CT dated June 01, 2024. TECHNIQUE: Multidetector volumetric imaging was performed from the superior aspect of the liver through the pubic symphysis. Sagittal and coronal reformatted images were obtained on the technologist's workstation. This CT examination was performed using dose optimization techniques as appropriate, variously including the following: *Automated exposure control *Adjustment of mA and/or kV according to patient size (this includes techniques or standardized protocols for targeted exams where dose is matched to indication/reason for exam; i.e. extremities or head) *Use of iterative reconstruction technique DLP: 368 mGy-cm FINDINGS: Inadequate evaluation of the intra-abdominal organs and vascular structures due to lack of IV contrast. LIVER, GALLBLADDER, AND BILIARY TREE: Liver measures 17 cm. No pericholecystic fluid collection or gallbladder wall thickening. No intra or extrahepatic biliary ductal dilatation. PANCREAS: No peripancreatic fluid collections. No main pancreatic ductal dilatation. SPLEEN: Measures 9 cm. ADRENAL GLANDS: No nodular lesions. KIDNEYS AND URETERS: No hydronephrosis or nephrolithiasis. BLADDER: Fluid-filled. GASTROINTESTINAL TRACT: Abundant stool involving mostly the right hemicolon and to a lesser extent rectum. No pneumatosis intestinalis. No air-fluid levels. No pneumoperitoneum. No ascites. Appendix is normal with inspissated secretions. ABDOMINAL WALL: No gross hernia. LYMPH NODES: No gross lymphadenopathy, retroperitoneal or mesenteric. VASCULAR: No aneurysm, abdominal aorta. PELVIC VISCERA: No gross masses. OSSEOUS STRUCTURES: No acute fracture or listhesis in the axial skeleton. No lytic or blastic lesions. CT/CT abdomen pelvis wo IV con IMPRESSION: Abundant stool right hemicolon without intestinal obstruction pattern or stercoralis colitis. Fleischner guidelines were followed. Electronically signed by: Sujit Connor MD 06/06/2024 09:20 AM [facility]
[2024-06-06 07:39] VITALS: PULSE 90; O2SAT 99
[2024-06-06 07:40] VITALS: BP 0/0; PULSE 90; RESP 19; TEMP 36.6; O2SAT 99; BMI 18.3
--- NOTE | 2024-06-06 07:51 | ED_ITS ---
HPI - Abdominal Pain General Chief Complaint: Abdominal Pain Stated Complaint: ABD PAIN X2W, CONSTIPATION,H/O AUTISM PER EMS Time Seen by Provider: 06/06/24 07:39 Source: patient and family (father) Mode of arrival: ambulatory Limitations: other (autism, nonverbal) History of Present Illness ED Provider: LINDA QURESHI PA-C HPI narrative: 24 year old female with pmhx significant for severe autism and cerebral palsy, nonverbal at baseline, presents to the ED today via EMS with father from home for evaluation of constipation. Father reports patient has been striking herself in the head and has been more aggressive with him at home. He states she is typically like this when she is in pain. He reports patient has a history of chronic idiopathic constipation however has not had an issue with this in over 6 years. She used to follow with a GI specialist in [place] however has not seen him in some time as this has been well controlled. States that she used to have NG tubes placed to prevent obstruction and has tolerated these well in the past. Father reports patient has not had a BM in 5 days. He is concerned that she is being overfed at her day program, causing this acute shift in bowel habits. She has been evaluated at our facility for this on 05/27/24 and again on 05/31/24. Imaging did not show evidence of obstruction on either visit. She was placed on a bowel regimen out patient. She has since followed up with her PCP who has started her on magnesium citrate which dad has been administering without improvement. This is patient's 3rd ED visit for this in the last 10 days. Related Data Home Medications ?Medication ?Instructions ?Recorded ?Confirmed clonidine HCl 0.2 mg tablet 0.2 mg PO BEDTIME 12/02/22 06/06/24 lorazepam 0.5 mg tablet 0.5 mg PO BID 12/02/22 06/06/24 montelukast 5 mg chewable tablet 5 mg PO DAILY 04/06/24 06/06/24 ondansetron 4 mg disintegrating 4 mg PO Q8H PRN nausea/vomiting 04/06/24 06/06/24 tablet rimegepant 75 mg disintegrating 75 mg PO DAILY PRN Migraine 04/06/24 06/06/24 tablet (Nurtec ODT) Headache sertraline 25 mg tablet 25 mg PO BID 04/06/24 06/06/24 acetaminophen 325 mg/10.15 mL oral 325 - 650 mg PO DAILY PRN Pain 06/06/24 06/06/24 suspension norethindrone acetate 1 mg-ethinyl 1 tab PO DAILY 06/06/24 06/06/24 estradiol 20 mcg tablet (Aurovela) Previous Rx's ?Medication ?Instructions ?Recorded doxazosin 1 mg tablet 1 mg PO BEDTIME retention 90 days 06/01/24 #90 tabs Allergies Allergy/AdvReac Type Severity Reaction Status Date / Time adhesive [ADHESIVE] Allergy Unknown HIVES Verified 06/06/24 07:47 amoxicillin [From AUGMENTIN] Allergy Unknown DIARRHEA Verified 06/06/24 07:47 clavulanic acid Allergy Unknown DIARRHEA Verified 06/06/24 07:47 [From AUGMENTIN] diphenhydramine Allergy Vomiting Verified 06/06/24 07:48 [From Benadryl] fluoxetine [From PROZAC] AdvReac Unknown BEHAVIORAL Verified 06/06/24 07:47 CHANGES Review of Systems Review of Systems Yes Unobtainable due to mental condition (patient nonverbal) [facility] Past Medical History Source: old records reviewed, obtained from family (father) and nursing notes reviewed Medical History Urinary disorder Diplegic cerebral palsy Autism Genetic disorder Social History Social History Patient Tobacco Use Status: Never used Tobacco Smoked in Last 30 Days: No Use of substances other than those prescribed or required for medical reasons: No Advance Directives: No Advance Directives Information Provided: Yes Do you have a plan to hurt others: No Plan Physical Exam ED Vital Signs: Vital Signs - 24 hr 06/06/24 07:40 06/06/24 14:28 Temperature 98 F 98.0 F Pulse Rate 90 77 Respiratory Rate 19 20 Blood Pressure 0/0 L 97/60 Pulse Oximetry 99 98 Oxygen Delivery Method Room Air Room Air BMI result Body Mass Index 18.3 vital signs stable General: Well appearing, in no acute distress. Skin: Warm, dry, intact. No rashes or lesions. Head: multiple areas of ecchymosis noted to forehead. no palpable skull fracture. no hematoma. EENT: Hearing is intact b/l. Conjunctiva clear. PERRLA. EOM intact. Moist mucous membranes.? Cardiac: Chest wall symmetric. RRR. Lungs: Normal respiratory effort without accessory muscle use. CTA bilaterally. Abdomen: Soft, non-tender, non-distended. No rebound tenderness or guarding. Positive BS x4. Back: No midline spinous or paraspinal tenderness. No step off deformity. Ext: Upper and lower extremities atraumatic, without tenderness, deformity, swelling or erythema. Full ROM throughout. Neuro: AOx3. Normal speech. Ambulating with steady gait. Course Course Course Narrative: 800 -- Patient arrives moaning, there are 3 bruises noted to her forehead as a resulf of her hitting her self. father at bedside attempting to restrain patient. 2 mg IM ativan ordered to prevent patient from harming herself physically. 919 -- CBC without leukocytosis or left shift. Chronic normocytic anemia, stable when compared to priors. H&H above transfusion threshold. Chemistry without acute electrolyte abnormality requiring intervention. No DUNIA. Normal liver function. Beta quant undetectable. I reviewed KUB obtained on 06-18 showing moderate quantity of stool within the ascending colon without evidence of intestinal dilation. I also reviewed CT abdomen/pelvis obtained on 06/01/2024 which shows prominent fluid filled small bowel loops. This was found to be nonspecific and may be related to enteritis. Appendix normal. Retained stool noted. No evidence of obstruction. CT scan obtained today shows abundant stool within the right hemicolon without intestinal obstruction or colitis. > I reached out to on-call GI physician, Dr. Garcia. She is recommending tap water enema to stimulate colon. We also discussed NG tube insertion for Golytely administration which she feels is reasonable as patient tolerated NG tube placement in the past. I also discussed this with my attending Dr. Oliva who agrees. I discussed NG tube insertion with patient's father who has provided consent. > enema ordered > NG tube to be placed by Gage BOLANOS. Golytely ordered. will continue to monitor. 1031 -- NG tube placed by Gage BOLANOS. Patient tolerated well. No complications. CXR confirming placement in stomach. Patient receiving Golytely. enema to start shortly after. will continue to monitor. 1441 -- On re-evaluation, patient lying comfortably in bed. she's received approx 600 Golytely through NG tube. Enema complete. She was able to pass only a small BM after receiving both of these. Will reach out to Dr. Garcia for further recommendation as this is patient's 3rd ED visit in the last 10 days. will continue to monitor. 1505 -- Dr. Garcia recommending admission to medicine. Advises for an additional 600 mL of GoLYTELY. If patient does not clear, recommending Gastrografin enema to rule out left colon obstruction, which can also be beneficial for laxative effect. I discussed this with patient's father who is agreeable to admission. Will reach out to hospitalist. 1511 -- Hospitalist Dr. Albarran has agreed to admission. Medical Decision Making Medical Decision Making [facility] Narrative: 24 year old female with pmhx significant for severe autism and cerebral palsy, nonverbal at baseline, presents to the ED today via EMS with father from home for evaluation of constipation. vital signs stable. please refer to exam portion for findings. Differential diagnosis includes anemia, electrolyte abnormality, dehydration, colitis, constipation, SBO, diverticulosis/ diverticulitis, uti Plan for labs, CT A/P, re-evaluation. Differential Diagnosis Differential Diagnoses: The differential diagnosis associated with the presentation includes as above. Admission/Observation Consideration of admission/observation: Escalation of care including admission/observation considered admission considered on presentation. Consult Healthcare Provider Management of the patient was discussed with: Hospitalist (Dr. Albarran) and Poultry Helper (GI Dr. Garcia) Lab Data [facility] Lab Attestation statement: I reviewed the patient's lab results. as above. 06/06/24 09:03 06/06/24 09:03 Labs: Lab Results 06/06/24 Range/Units 09:03 WBC 7.4 (4.8-10.8) X10*3/uL RBC 4.71 (4.20-5.50) X10*6/uL Hgb 10.7 L (12.0-16.0) g/dl Hct 33.8 L (37.0-47.0) % MCV 71.8 L (80.0-98.0) fL MCH 22.7 L (27.0-33.0) pg MCHC 31.7 (31.0-35.0) g/dl RDW 18.6 H (11.0-16.0) % Plt Count 275 (160-400) X10*3/uL MPV 9.0 L (9.4-12.3) fL Immature Gran % (Auto) 0.3 (0.0-0.4) % Neut % (Auto) 73.2 H (45-73) % Lymph % (Auto) 21.0 (20-40) % Clare % (Auto) 4.6 (2-11) % Eos % (Auto) 0.4 (0-4) % Baso % (Auto) 0.5 (0-2) % Lymph # (Auto) 1.5 (1.2-4.9) X10*3/uL Clare # (Auto) 0.3 (0.1-1.2) X10*3/uL Eos # (Auto) 0.0 (0.0-0.4) X10*3/uL Baso # (Auto) 0.0 (0.0-0.2) X10*3/uL Abs Immat Gran (auto) 0.02 (0.00-0.03) X10*3/uL Absolute Neuts (auto) 5.4 (2.0-8.3) x10*3/uL Absolute Nucleated RBC 0.000 (0.0-0.012) X10*3/uL Nucleated RBC % (auto) 0.0 (0.0-0.2) /100WBC Sodium 138 (135-145) mmol/L Potassium 4.2 (3.3-5.1) mmol/L Chloride 108 (96-108) mmol/L Carbon Dioxide 25 (22-29) mmol/L Anion Gap 9 L (12-20) BUN 10 (9-16) mg/dL Creatinine 0.69 (0.5-1.4) mg/dL Estim Creat Clear Calc 85.8 Estimated GFR > 60 Random Glucose 88 (60-115) mg/dL Calcium 8.7 (8.4-10.2) mg/dL Magnesium 2.4 (1.6-2.6) mg/dL Total Bilirubin 0.9 (0.0-1.0) mg/dL AST 19 (5-31) U/L ALT 17 (0-31) U/L Alkaline Phosphatase 54 (39-117) U/L Total Protein 6.9 (6.5-8.0) g/dL Albumin 3.9 (3.5-5.0) g/dL Lipase 16 (8-78) U/L Beta HCG, Quant < 2 mIU/mL Independent Interpretation I performed an independent interpretation of an: Plain X-Ray and CT Scan Interpretation: CT A/P 06/06/24 showing large stool burden to right hemicolon, no obstruction. KUB 05/27/24 showing stool in ascending colon CT A/P 06/01/24 without obstruction Radiology Impression Discussion of test interpretation with radiology: I have reviewed the radiologist's reading. Radiologist Impression: EXAMINATION: XR ABDOMEN KUB CLINICAL INDICATION: Constipation. Abdominal pain. COMPARISON: None available. TECHNIQUE: AP view of the abdomen. FINDINGS: Visualized lung bases are clear. Scattered bowel gas is noted in nondistended intestinal segments. A moderate quantity of stool is noted in the ascending colon. Gas is noted in descending colon with a mild quantity of stool noted in the descending colon. No dystrophic calcifications are definitive urolithiasis identified. XR/XR KUB IMPRESSION: *Moderate quantity of stool within the ascending colon. No intestinal dilatation to specifically suggest obstruction. Electronically signed by: Brent Garcia MD 05/27/2024 04:06 AM EDT RP EXAMINATION: CT ABDOMEN AND PELVIS WITHOUT CONTRAST CLINICAL INFORMATION: Abdominal pain. COMPARISON: None available. TECHNIQUE: Multidetector volumetric imaging was performed from the superior aspect of the liver through the pubic symphysis. Sagittal and coronal reformatted images were obtained on the technologist's workstation. This CT examination was performed using dose optimization techniques as appropriate, variously including the following: *Automated exposure control *Adjustment of mA and/or kV according to patient size (this includes techniques or standardized protocols for targeted exams where dose is matched to indication/reason for exam; i.e. extremities or head) *Use of iterative reconstruction technique DLP: 438 mGy-cm FINDINGS: LUNG BASES: The visualized lung bases are unremarkable. LIVER, GALLBLADDER, AND BILIARY TREE: The liver is normal in size, shape, and attenuation. No focal hepatic lesion or biliary ductal dilatation is present. The gallbladder is unremarkable with no evidence of radiopaque gallstones, gallbladder wall thickening, or obvious pericholecystic inflammatory changes. PANCREAS: Unremarkable. SPLEEN: Unremarkable. ADRENAL GLANDS: Unremarkable. KIDNEYS AND URETERS: The kidneys are normal in size, shape, and attenuation. No hydronephrosis, hydroureter, or calculi seen. No perinephric stranding. BLADDER: Unremarkable. GASTROINTESTINAL TRACT: There is retained stool. There are prominent fluid-filled small bowel loops. The appendix is visualized and is within normal limits. There is mild thickening of the visualized distal esophagus. ABDOMINAL WALL: No significant hernia is appreciated. LYMPH NODES: Normal. VASCULAR: Unremarkable. PELVIC VISCERA: Unremarkable. OSSEOUS STRUCTURES: Unremarkable. CT/CT abdomen pelvis wo IV con IMPRESSION: 1. Prominent fluid-filled small bowel loops. This is nonspecific and could be related to enteritis. 2. Retained stool. 3. Mild thickening of the visualized distal esophagus. Consider esophagitis. Fleischner guidelines were followed. Electronically signed by: David Snow MD 06/01/2024 02:23 AM [facility] EXAMINATION: CT ABDOMEN AND PELVIS WITHOUT CONTRAST CLINICAL INFORMATION: Worsening constipation. Concerning obstruction. COMPARISON: CT dated June 01, 2024. TECHNIQUE: Multidetector volumetric imaging was performed from the superior aspect of the liver through the pubic symphysis. Sagittal and coronal reformatted images were obtained on the technologist's workstation. This CT examination was performed using dose optimization techniques as appropriate, variously including the following: *Automated exposure control *Adjustment of mA and/or kV according to patient size (this includes techniques or standardized protocols for targeted exams where dose is matched to indication/reason for exam; i.e. extremities or head) *Use of iterative reconstruction technique DLP: 368 mGy-cm FINDINGS: Inadequate evaluation of the intra-abdominal organs and vascular structures due to lack of IV contrast. LIVER, GALLBLADDER, AND BILIARY TREE: Liver measures 17 cm. No pericholecystic fluid collection or gallbladder wall thickening. No intra or extrahepatic biliary ductal dilatation. PANCREAS: No peripancreatic fluid collections. No main pancreatic ductal dilatation. SPLEEN: Measures 9 cm. ADRENAL GLANDS: No nodular lesions. KIDNEYS AND URETERS: No hydronephrosis or nephrolithiasis. BLADDER: Fluid-filled. GASTROINTESTINAL TRACT: Abundant stool involving mostly the right hemicolon and to a lesser extent rectum. No pneumatosis intestinalis. No air-fluid levels. No pneumoperitoneum. No ascites. Appendix is normal with inspissated secretions. ABDOMINAL WALL: No gross hernia. LYMPH NODES: No gross lymphadenopathy, retroperitoneal or mesenteric. VASCULAR: No aneurysm, abdominal aorta. PELVIC VISCERA: No gross masses. OSSEOUS STRUCTURES: No acute fracture or listhesis in the axial skeleton. No lytic or blastic lesions. CT/CT abdomen pelvis wo IV con IMPRESSION: Abundant stool right hemicolon without intestinal obstruction pattern or stercoralis colitis. Fleischner guidelines were followed. Electronically signed by: Sujit Connor MD 06/06/2024 09:20 AM [facility] Independent Historian Clinical information obtained from an independent historian. History obtained from or confirmed by: Parent (father) External Record Review External record reviewed: Inpatient record Prescription Management I considered prescription management with: Other (laxitives) Chronic Conditions Patient?s care impacted by: Other (autism, CP, constipation) Social Determinants Patient?s care significantly limited by Social Determinants of Health including: Other Social Determinant of Health Medications Administered Generic Name Dose Route Start Last Admin Trade Name Freq PRN Reason Stop Dose Admin Dextrose/Sodium Chloride 1,000 mls @ 80 mls/hr 06/06/24 15:30 06/06/24 15:51 D51/2ns IVCONT 80 mls/hr .[id number] MADYSON Administration Lorazepam 1 mg 06/06/24 15:26 06/06/24 17:37 Lorazepam 2 Mg/Ml Vial IVPUSH 1 mg Q6H PRN Administration Anxiety Sodium Chloride 3 ml 06/06/24 16:00 06/06/24 15:51 0.9 % Sodium Chloride Flush 3 Ml Syringe IVFLUSH 3 ml QSHIFT MADYSON Administration Discontinued Medications Generic Name Dose Route Start Last Admin Trade Name Freq PRN Reason Stop Dose Admin Lidocaine HCl 1 appl 06/06/24 09:58 06/06/24 10:03 Lidocaine Hcl 4 % Topical 50 Ml Solution TOPICAL 06/06/24 09:59 1 appl ONCE ONE Administration Protocol Lorazepam 2 mg 06/06/24 08:01 06/06/24 08:02 Lorazepam 2 Mg/Ml Vial IM 06/06/24 08:02 2 mg ONCE ONE Administration Polyethylene Glycol/Electrolytes 240 ml 06/06/24 09:50 06/06/24 11:01 Peg 3350/Na Sulf,Bicarb,Cl/Kcl 4,000 Ml Soln.Recon PO 06/06/24 09:51 240 ml ONCE ONE Administration Critical Care Time Critical Care Time Critical Care Time: Yes Total Critical Care Time: 45 Attestation: Critical care time in the amount of 45 minutes has been provided to the patient in terms of direct patient care, frequent reevaluation, consultation with GI and hospitalist, review and interpretation of medical data and results, and management of potentially life-threatening conditions. This is all outside of any medical procedures. Discharge Plan Discharge Clinical Impression: Constipation Patient Disposition: Admitted As Inpatient
[2024-06-06] MEDS: LORazepam 2 MG/ML VIAL IM (08:02)
[2024-06-06 09:08] LABS: MANUAL DIFF FLAG NO
[2024-06-06 09:09] LABS: Basophils Percent Auto 0.5 % (0-2); Eosinophils Percent Auto 0.4 % (0-4); Hematocrit 33.8 % (37.0-47.0); Hemoglobin 10.7 g/dl (12.0-16.0); Imm Gran Abs Auto 0.02 X10*3/uL (0.00-0.03); Imm Gran Pct Auto 0.3 % (0.0-0.4); Lymphocytes Absolute Auto 1.5 X10*3/uL (1.2-4.9); Mean Corpuscular HGB Conc 31.7 g/dl (31.0-35.0); Mean Corpuscular Hemoglobin 22.7 pg (27.0-33.0); Mean Corpuscular Volume 71.8 fL (80.0-98.0); Monocytes Absolute Auto 0.3 X10*3/uL (0.1-1.2); Monocytes Percent Auto 4.6 % (2-11); Neutrophils Absolute Auto 5.4 x10*3/uL (2.0-8.3); Neutrophils Percent Auto 73.2 % (45-73); Platelet Count 275 X10*3/uL (160-400); Red Blood Count 4.71 X10*6/uL (4.20-5.50); Red Cell Distribution Width 18.6 % (11.0-16.0); White Blood Count 7.4 X10*3/uL (4.8-10.8)
[2024-06-06 09:30] LABS: Alanine Aminotransferase 17 U/L (0-31); Albumin Level 3.9 g/dL (3.5-5.0); Alkaline Phosphatase 54 U/L (39-117); Anion Gap 9 (12-20); Aspartate Amino Transferase 19 U/L (5-31); Bilirubin Total 0.9 mg/dL (0.0-1.0); Blood Urea Nitrogen 10 mg/dL (9-16); Calcium 8.7 mg/dL (8.4-10.2); Carbon Dioxide 25 mmol/L (22-29); Chloride 108 mmol/L (96-108); Creatinine Clr Calc Pharmacy 85.8; Estimated Glomerular Filt Rate > 60; Glucose Random 88 mg/dL (60-115); Lipase 16 U/L (8-78); Magnesium 2.4 mg/dL (1.6-2.6); Potassium 4.2 mmol/L (3.3-5.1); Sodium 138 mmol/L (135-145); Total Protein 6.9 g/dL (6.5-8.0)
[2024-06-06 09:31] LABS: HCG Quantitative < 2 mIU/mL
[2024-06-06] MEDS: Lidocaine HCl 4 % Topical 50 ML SOLUTION 1 APPL TOPICAL (10:03)
[2024-06-06] MEDS: PEG 3350/Na Sulf,Bicarb,Cl/KCL 4,000 ML SOLN.RECON 240 ML PO (11:01)
[2024-06-06 14:28] VITALS: BP 97/60; PULSE 77; RESP 20; TEMP 36.7; O2SAT 98
--- NOTE | 2024-06-06 14:33 | PC.NURSE ---
pt given another 300ml of the go lightly and approx 800ml total
--- NOTE | 2024-06-06 15:27 | PM.IMHP ---
History of Present Illness Date of Service: 06/06/24 Chief Complaint: agitation, constipation 24F PMH cereberal palsy, autism, non verbal, presented with constipation and agitation. History is obtained from patient's father. He reports that patient has been more aggressive recently striking herself and biting and scratching at him. He reports that this is a sign of her being in discomfort. She has a history of chronic constipation. Has not had Full BM in about 5 days. Has been to the ED twice in the last week CT abdomen did show significant stool burden without obstruction or inflammation. NG tube was placed and patient started on GoLYTELY. Of note father noticed new finding of blister on right anterior thigh, no history of significant trauma to area or burn. Review of Systems Review of Systems: Yes Unobtainable due to mental condition [facility] Medical History Urinary disorder Diplegic cerebral palsy Autism Genetic disorder Social History Patient Tobacco Use Status: Never used Tobacco Smoked in Last 30 Days: No Use of substances other than those prescribed or required for medical reasons: No Advance Directives: No Advance Directives Information Provided: Yes Do you have a plan to hurt others: No Plan Meds Allergies Allergy/AdvReac Type Severity Reaction Status Date / Time adhesive [ADHESIVE] Allergy Unknown HIVES Verified 06/06/24 07:47 amoxicillin [From AUGMENTIN] Allergy Unknown DIARRHEA Verified 06/06/24 07:47 clavulanic acid Allergy Unknown DIARRHEA Verified 06/06/24 07:47 [From AUGMENTIN] diphenhydramine Allergy Vomiting Verified 06/06/24 07:48 [From Benadryl] fluoxetine [From PROZAC] AdvReac Unknown BEHAVIORAL Verified 06/06/24 07:47 CHANGES Active Medications: Current Medications Acetaminophen (Acetaminophen 325 Mg Tablet) 650 mg PO Q6H PRN PRN Reason: Pain, Mild (Pain Scale 1-3), fever or headache Calcium Carbonate (Calcium Carbonate 750 Mg Tab.Chew) 750 mg PO Q4H PRN PRN Reason: Heartburn Enoxaparin Sodium (Enoxaparin Sodium 40 Mg/0.4 Ml Syringe) 40 mg SUBCUT Q24H MADYSON Dextrose/Sodium Chloride (D51/2ns) 1,000 mls @ 80 mls/hr IVCONT .[id number] [facility] Lorazepam (Lorazepam 2 Mg/Ml Vial) 1 mg IVPUSH Q6H PRN PRN Reason: Anxiety Magnesium Hydroxide (Milk Of Magnesia 30 Ml Oral.Susp) 30 ml PO DAILY PRN PRN Reason: Constipation Melatonin (Melatonin 3 Mg Tablet) 6 mg PO BEDTIME PRN PRN Reason: Insomnia Sodium Chloride (0.9 % Sodium Chloride Flush 3 Ml Syringe) 3 ml IVFLUSH QSHIFT [facility] Home Medications ?Medication ?Instructions ?Recorded ?Confirmed ?Last Taken ?Type clonidine HCl 0.2 mg tablet 0.2 mg PO BEDTIME 12/02/22 Unknown History lorazepam 0.5 mg tablet 0.5 mg PO BID 12/02/22 Unknown History norethindrone acetate 1 mg-ethinyl 1 tab PO DAILY 12/02/22 Unknown History estradiol 20 mcg tablet (Junel) montelukast 5 mg chewable tablet 5 mg PO DAILY 04/06/24 Unknown History ondansetron 4 mg disintegrating 4 mg PO Q8H PRN 04/06/24 Unknown History tablet rimegepant 75 mg disintegrating mg PO 04/06/24 Unknown History tablet (Nurtec ODT) sertraline 25 mg tablet mg PO 04/06/24 Unknown History gabapentin 100 mg capsule 100 mg PO BID 06/06/24 Unknown History Physical Exam Vital Signs and Narrative: Vital Signs: Last Vital Signs Temp 98.0 F 06/06/24 14:28 Pulse 77 06/06/24 14:28 Resp 20 06/06/24 14:28 BP 97/60 06/06/24 14:28 Pulse Ox 98 06/06/24 14:28 O2 Del Method Room Air 06/06/24 14:28 BMI result Body Mass Index 18.3 Resting comfortably, nonverbal, NG tube in place Vesicle/blister on right anterior thigh, no surrounding edema or erythema Results Labs 06/06/24 09:03 06/06/24 09:03 Labs: Laboratory Results - last 24 hr 06/06/24 09:03 MCV 71.8 L MCH 22.7 L MCHC 31.7 RDW 18.6 H Plt Count 275 MPV 9.0 L Immature Gran % (Auto) 0.3 Neut % (Auto) 73.2 H Lymph % (Auto) 21.0 Scurry % (Auto) 4.6 Eos % (Auto) 0.4 Baso % (Auto) 0.5 Lymph # (Auto) 1.5 Scurry # (Auto) 0.3 Eos # (Auto) 0.0 Baso # (Auto) 0.0 Abs Immat Gran (auto) 0.02 Absolute Neuts (auto) 5.4 Absolute Nucleated RBC 0.000 Nucleated RBC % (auto) 0.0 Anion Gap 9 L Estim Creat Clear Calc 85.8 Estimated GFR > 60 Random Glucose 88 Calcium 8.7 Magnesium 2.4 Total Bilirubin 0.9 AST 19 ALT 17 Alkaline Phosphatase 54 Total Protein 6.9 Albumin 3.9 Lipase 16 Beta HCG, Quant < 2 Imaging Radiologist's Impressions: Impressions Abdomen/Pelvis CT 06/06/24 08:52 IMPRESSION: Abundant stool right hemicolon without intestinal obstruction pattern or stercoralis colitis. Fleischner guidelines were followed. Electronically signed by: Sujit Connor MD 06/06/2024 09:20 AM EST RP Chest X-Ray 06/06/24 10:40 IMPRESSION: NG tube probably in the stomach. Electronically signed by: Sujit Connor MD 06/06/2024 11:02 AM EST RP Assessment and Plan (1) Dysfunctional elimination syndrome: Status: Acute Plan 24F PMH cereberal palsy, autism, non verbal, presented with constipation and agitation Severe constipation Continue GoLYTELY through NG tube, follow up GI IV fluids, NPO Relative hypotension Will hold clonidine and doxazosin Cerebral palsy, autism, non verbal Right thigh blister Unclear etiology, monitor DVT prophylaxis with low Full code Quality Stroke Does the patient have a stroke diagnosis?: No VTE Prior VTE?: No VTE Risk Level:: Medical - moderate - high VTE Device Contraindication: Treatment Not Indicated VTE Drug Contraindication: N/A - Med Ordered
[2024-06-06] MEDS: 0.9 % Sodium Chloride Flush 3 ML SYRINGE IVFLUSH (15:51)
[2024-06-06] MEDS: Dextrose 5 % and 0.45 % NaCl 1,000 ML 80 ML IVCONT (15:51)
--- NOTE | 2024-06-06 15:52 | P.CNGI_ITS ---
History of Present Illness Data of Consult Service Date: 06/06/24 Requesting physician: Roly Silveira Primary Care Provider: Bernardo Torrez MD [facility] Reason for consult: Severe constipation 24 YF with cereberal palsy, autism, non verbal seen at [facility] ED on 06/06/24 with constipation and agitation. Estimated developmental age 18 months to 1 years History obtained from patient's Dad who was at the bedside. Dad reported that the patient has been more aggressive recently striking herself and biting and scratching at him (sign of her being in discomfort). Pt has a history of chronic constipation, takes a stool softener and a rectal suppository every 2 days and usually has a BM 3 times a week. She was given Miralax in the past which caused abdominal cramps. Dad reports pt has not had Full BM in about 5 days and has been seen in the ED twice in the last week. Per Dad the staff at her Day program may be over feeding her recently (thinks there may have been some staff turnover) In the ED, NG tube was placed and patient was given 600 ml of GoLYTELY followed by a small mushy stool. 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 There have been discussions regarding ANNETTE-Escamilla procedure to allow for antegrade enema 06/06/[address] SCAN SHOWED: GASTROINTESTINAL TRACT: Abundant stool involving mostly the right hemicolon and to a lesser extent rectum. No pneumatosis intestinalis. No air-fluid levels. No pneumoperitoneum. No ascites. Appendix is normal with inspissated secretions. IMPRESSION: Abundant stool right hemicolon without intestinal obstruction pattern or stercoralis colitis. Review of Systems 2 Review of Systems: Yes Unobtainable due to mental condition PMFSH Past Medical History Medical History Urinary disorder Diplegic cerebral palsy Autism Genetic disorder Social History Social History Patient Tobacco Use Status: Never used Tobacco Smoked in Last 30 Days: No Use of substances other than those prescribed or required for medical reasons: No Advance Directives: No Advance Directives Information Provided: Yes Do you have a plan to hurt others: No Plan Meds Allergies Allergy/AdvReac Type Severity Reaction Status Date / Time adhesive [ADHESIVE] Allergy Unknown HIVES Verified 06/06/24 07:47 amoxicillin [From AUGMENTIN] Allergy Unknown DIARRHEA Verified 06/06/24 07:47 clavulanic acid Allergy Unknown DIARRHEA Verified 06/06/24 07:47 [From AUGMENTIN] diphenhydramine Allergy Vomiting Verified 06/06/24 07:48 [From Benadryl] fluoxetine [From PROZAC] AdvReac Unknown BEHAVIORAL Verified 06/06/24 07:47 CHANGES Active Medications: Current Medications Acetaminophen (Acetaminophen 325 Mg Tablet) 650 mg PO Q6H PRN PRN Reason: Pain, Mild (Pain Scale 1-3), fever or headache Calcium Carbonate (Calcium Carbonate 750 Mg Tab.Chew) 750 mg PO Q4H PRN PRN Reason: Heartburn Enoxaparin Sodium (Enoxaparin Sodium 40 Mg/0.4 Ml Syringe) 40 mg SUBCUT Q24H [facility] Dextrose/Sodium Chloride (D51/2ns) 1,000 mls @ 80 mls/hr IVCONT .[id number] [facility] Last Admin: 06/06/24 15:51 Dose: 80 mls/hr Lorazepam (Lorazepam 2 Mg/Ml Vial) 1 mg IVPUSH Q6H PRN PRN Reason: Anxiety Magnesium Hydroxide (Milk Of Magnesia 30 Ml Oral.Susp) 30 ml PO DAILY PRN PRN Reason: Constipation Melatonin (Melatonin 3 Mg Tablet) 6 mg PO BEDTIME PRN PRN Reason: Insomnia Sodium Chloride (0.9 % Sodium Chloride Flush 3 Ml Syringe) 3 ml IVFLUSH QSHIFT [facility] Last Admin: 06/06/24 15:51 Dose: 3 ml Home Medications ?Medication ?Instructions ?Recorded ?Confirmed ?Last Taken ?Type clonidine HCl 0.2 mg tablet 0.2 mg PO BEDTIME 12/02/22 06/06/24 06/05/24 History lorazepam 0.5 mg tablet 0.5 mg PO BID 12/02/22 06/06/24 06/05/24 History montelukast 5 mg chewable tablet 5 mg PO DAILY 04/06/24 06/06/24 06/05/24 History ondansetron 4 mg disintegrating 4 mg PO Q8H PRN nausea/vomiting 04/06/24 06/06/24 06/05/24 History tablet rimegepant 75 mg disintegrating 75 mg PO DAILY PRN Migraine 04/06/24 06/06/24 06/05/24 History tablet (Nurtec ODT) Headache sertraline 25 mg tablet 25 mg PO BID 04/06/24 06/06/24 06/05/24 History acetaminophen 325 mg/10.15 mL oral 325 - 650 mg PO DAILY PRN Pain 06/06/24 06/06/24 06/05/24 History suspension norethindrone acetate 1 mg-ethinyl 1 tab PO DAILY 06/06/24 06/06/24 06/05/24 History estradiol 20 mcg tablet (Aurovela) Physical Exam 2 Vital Signs: Vital Signs: Last Vital Signs Temp 98.0 F 06/06/24 14:28 Pulse 77 06/06/24 14:28 Resp 20 06/06/24 14:28 BP 97/60 06/06/24 14:28 Pulse Ox 98 06/06/24 14:28 O2 Del Method Room Air 06/06/24 14:28 BMI result Body Mass Index 18.3 Const: General: other (developmental delay, agitated) Nutritional Appearance: underweight Limitations: other limitations (developmental delay) HEENT: Head: Yes normal to inspection Eyes: Sclerae: sclerae normal Pupils: Equal, round and reactive pupils present Neck: Neck: Yes normal visual inspection Chest: Chest palpation & inspection: normal inspection of the chest Resp: Effort & Inspection: normal respiratory effort Auscultation: clear to auscultation bilaterally Cardio: Palpation: normal PMI Rate: regular rate Rhythm: regular rhythm Heart sounds: S1 normal heart sound present, S2 normal heart sound present and no murmurs GI: Palpation (GI): Soft to palpation, nontender and No hepatosplenomegaly present Auscultation: normal bowel sounds Rectal Exam - Female: deferred Skin: General skin exam: no rashes or lesions noted Neuro: General: gait normal and moves all extremities Cranial nerves: Yes Equal, round and reactive pupils present Psych: Appearance: grossly normal Mental Status: other (developmental delay) Speech and movement: Other speech and movement exam findings present (Psych) (non verbal) Results Labs 06/06/24 09:03 06/06/24 09:03 Labs: Short CBC 06/06/24 Range/Units 09:03 WBC 7.4 (4.8-10.8) X10*3/uL Hgb 10.7 L (12.0-16.0) g/dl Hct 33.8 L (37.0-47.0) % Plt Count 275 (160-400) X10*3/uL BMP 06/06/24 09:03 Sodium 138 Potassium 4.2 Chloride 108 Carbon Dioxide 25 BUN 10 Creatinine 0.69 Calcium 8.7 Liver Function 06/06/24 Range/Units 09:03 Total Bilirubin 0.9 (0.0-1.0) mg/dL AST 19 (5-31) U/L ALT 17 (0-31) U/L Alkaline Phosphatase 54 (39-117) U/L Albumin 3.9 (3.5-5.0) g/dL Assessment and Plan (1) Constipation: Status: Acute (2) Dysfunctional elimination syndrome: Status: Acute Plan 24 YF with cereberal palsy, autism, non verbal seen at [facility] ED on 06/06/24 with 5 day hx of constipation and agitation. Chronic constipation is likely due to colonic inertia/slow transit. Labs showed microcytic hypochromic anemia - likely due to iron deficiency Abdominal CT scan showed abundant stool mostly in the right colon and and to a lesser extent in the rectum In the ED, NG tube was placed and patient was given 600 ml of GoLYTELY followed by a small mushy stool. 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 There have been discussions regarding ANNETTE-Escamilla procedure to allow for antegrade enema RECOMMENDATIONS: 1. Check TSH and iron studies - added to am labs 2. Give additional 600 ml of Golytely via NG tube 3. Clear liquid diet. 4. Discontinue TUMS (likely contributing to constipation) and switch to famotadine 20 mg twice daily for GERD 5. If obstipation does not resolve with above, gastrograffin enema to rule out colon obstruction (Gastrograffin also has a laxative effect) 6. Can add Milk of Magnesia 30 ml daily to pt's bowel regimen on discharge - since pt gets abd cramps with Miralax. Pt is followed by Dr Rangel at [facility] Procedures Date of Service Date of Service: 06/07/24
[2024-06-06 17:35] VITALS: BP 106/70; PULSE 72; RESP 20; O2SAT 100
[2024-06-06] MEDS: LORazepam 2 MG/ML VIAL 1 MG IVPUSH ×2 (17:37→23:34)
--- NOTE | 2024-06-06 18:04 | PHA.MEDREC ---
Addendum entered by Mani Barbosa tim 06/06/24 18:17: Med rec reviewed Original Note: Pharmacy Consult ? Medication Reconciliation Pharmacy has completed the medication reconciliation. Confirmed medications with patient dad at bedside. Patient dad confirmed she has the Gabapentin 100mg tabs and Baclofen 5mg tabs at home but they have not started them with her for fear that it might be too much for the patient. They confirmed since the patient is non-verbal the patient is not really able to take tablet/capsule form of medications and typically takes liquid forms, chewable or the dad will mix some medications depending which one they are and put them in water to dissolve and give it to his daughter via a syringe in her mouth. He claims they gave the patient her medications yesterday.
[2024-06-06 20:00] VITALS: BP 130/77; PULSE 80; RESP 18; TEMP 36.6; O2SAT 100
--- NOTE | 2024-06-06 20:06 | PC.NURSE ---
No air heard when checked for placement of NG tube prior to Golytely administration. Dr mcnally aware and order for x ray. Dr Garcia was at bedside to assess patient. per Dr Garcia give 1-2 syringes of Golytely very 1/2-1hour.
--- NOTE | 2024-06-06 20:32 | MHC.EDTECH ---
This tech took over care of patient at 1900,rounded and introduced self to pt,vitals taken,patient was placed in hospital attire,patient was incot. of a small soft brown stool,mio care given,repositioned to comfort,dad at bedside,call wiseman in reach
[2024-06-06] MEDS: Milk of Magnesia 30 ML ORAL.SUSP PO (21:41)
--- NOTE | 2024-06-06 22:47 | PC.NURSE ---
Assumed care of pt at 2200. PT resting quietly in bed, in no acute distress. Father at bedside, vss. plan for admission. Safety precautions in place . call wiseman within reach.
[2024-06-06 23:33] VITALS: BP 123/76; PULSE 75; RESP 18; TEMP 36.6; O2SAT 100
--- NOTE | 2024-06-06 23:34 | MHC.EDTECH ---
Hourly rounds and vitals completed,patient was incont. of a moderate amount of soft stool,mio-care given,patient was very agitated,hitting herself and pulling her hair,dad at bedside and assisted,RN aware
[2024-06-07 04:00] VITALS: BP 96/72; PULSE 56; RESP 16; TEMP 36.4; O2SAT 99
--- NOTE | 2024-06-07 04:11 | PC.NURSE ---
cleansed of moderate very loose BM. Skin intact. Pt remained calm. Dad at bedside asleep.
--- NOTE | 2024-06-07 04:12 | MHC.EDTECH ---
Rounds and vitals completed,patient was incont. of a large amount of liquid brown stool,mio care given,pt repositioned to comfort,call
[2024-06-07] MEDS: Dextrose 5 % and 0.45 % NaCl 1,000 ML 80 ML IVCONT (04:16)
--- NOTE | 2024-06-07 05:44 | MHC.EDTECH ---
Patient was incont. of urine and an XLG loose bowel movement,mio-care given bed linen changed,patient repositioned to comfort
--- NOTE | 2024-06-07 05:46 | PC.NURSE ---
cleansed of very large lose BM
[2024-06-07 06:28] LABS: Hematocrit 33.4 % (37.0-47.0); Hemoglobin 10.3 g/dl (12.0-16.0); Mean Corpuscular HGB Conc 30.8 g/dl (31.0-35.0); Mean Corpuscular Hemoglobin 22.5 pg (27.0-33.0); Mean Corpuscular Volume 73.1 fL (80.0-98.0); Mean Platelet Volume 9.8 fL (9.4-12.3); Platelet Count 278 X10*3/uL (160-400); Red Blood Count 4.57 X10*6/uL (4.20-5.50); Red Cell Distribution Width 18.4 % (11.0-16.0); White Blood Count 5.3 X10*3/uL (4.8-10.8)
[2024-06-07 06:39] LABS: Anion Gap 13 (12-20); Blood Urea Nitrogen 7 mg/dL (9-16); Calcium 8.8 mg/dL (8.4-10.2); Carbon Dioxide 22 mmol/L (22-29); Chloride 104 mmol/L (96-108); Creatinine Clr Calc Pharmacy 88.3; Estimated Glomerular Filt Rate > 60; Glucose Fasting 86 mg/dL (60-99); Iron 39 mcg/dL (30-160); Percent Iron Saturation 10 % (15-50); Potassium 3.6 mmol/L (3.3-5.1); Sodium 135 mmol/L (135-145); Total Iron Binding Capacity 397 mcg/dL (228-428); Unsaturated Iron Binding 358 ug/dL
[2024-06-07 06:55] LABS: Ferritin 4 ng/mL (10-122); TSH reflex Free T4 3.04 uIU/mL (0.32-4.0)
[2024-06-07 07:07] LABS: Folate 7.8 ng/mL (> or = 4.0); Vitamin B12 261 pg/mL (200-900)
[2024-06-07 08:00] VITALS: BP 111/72; PULSE 68; RESP 16; TEMP 36.3; O2SAT 99
[2024-06-07] MEDS: LORazepam 2 MG/ML VIAL 1 MG IVPUSH (08:21)
--- NOTE | 2024-06-07 08:21 | PC.NURSE ---
small BM cleansed. lovenox held d/t high rist for bruising given baseline monility limitations.
--- NOTE | 2024-06-07 10:14 | MHC.CM.PN ---
CM met with Patient and her Father/Guardian/PHYSICAL THERAPY TECHNICIAN at bedside, in the ED and addressed IMM with Father, original was given to Father and a copy will be placed on the chart. Patient lives in a house with her Parents and her Father/ Guardian is her [employer] PHYSICAL THERAPY TECHNICIAN 57 hours/week. Patient has [employer] services through [employer] and she attends a Day Program. Home/resume said services is the goal and CM has initiated and will follow for dc planning. PCP is Dr. Bernardo Torrez and Father will transport Patient home in her adult stroller.
[2024-06-07 12:00] VITALS: BP 135/77; PULSE 64; RESP 15; TEMP 36.7; O2SAT 100
--- NOTE | 2024-06-07 12:29 | PM.DS ---
DS: Providers Provider Date of Service: 06/07/24 Date of admission: 06/06/24 15:24 Date of discharge: 06/07/24 Primary care physician: Bernardo Torrez MD Consults: 06/06/24 15:24 Consult to Gastroenterology Routine Consulting Provider: Benito Garcia Reason for consultation: severe constipation DS: Diagnosis Discharge Diagnosis (1) Constipation: Status: Acute (2) Dysfunctional elimination syndrome: Status: Acute DS: Summary Hospital Course Hospital Course: 24F PMH cereberal palsy, autism, non verbal, presented with constipation and agitation. History is obtained from patient's father. He reports that patient has been more aggressive recently striking herself and biting and scratching at him. He reports that this is a sign of her being in discomfort. She has a history of chronic constipation. Has not had Full BM in about 5 days. Has been to the ED twice in the last week CT abdomen did show significant stool burden without obstruction or inflammation. NG tube was placed and patient started on GoLYTELY. Hospital course Patient tolerated GoLYTELY for short period of time an NG-tube was removed. Patient also received 30 cc of milk of magnesia with excellent results. Had multiple large bowel movements within the 1st 24 hours of admission. Repeat KUB demonstrated resolution of constipation. Long discussion with father; at this time patient is medically acceptable for discharge and father will add milk of magnesia as needed to her regimen. She will follow up with the PCP next available Time Attestation Discharge Coordination Time (in mins): 35 Quality: Safe Use of Opioids Does Pt have an Active Cancer Diagnosis on the Problem List?: No Quality: Stroke Does the patient have a stroke diagnosis?: No Physical Exam Vital Signs: Vital Signs: Last Vital Signs Temp 98.1 F 06/07/24 12:00 Pulse 64 06/07/24 12:00 Resp 15 06/07/24 12:00 BP 135/77 06/07/24 12:00 Pulse Ox 100 06/07/24 12:00 O2 Del Method Room Air 06/07/24 12:00 BMI result Body Mass Index 18.3 Const: Other: Awake nonverbal (baseline per father) Resp: Other: Clear to auscultation bilaterally no rales rhonchi or wheezes Cardio: Other: No S4; positive S1-S2; no S3 murmurs rubs or gallops GI: Other: Soft nontender nondistended normoactive bowel sounds Extrem: Other: No edema bilateral DS: Data Data Completed and Pending Labs on day of discharge: Laboratory Results - last 24 hr 06/07/24 05:51 WBC 5.3 RBC 4.57 Hgb 10.3 L Hct 33.4 L MCV 73.1 L MCH 22.5 L MCHC 30.8 L RDW 18.4 H Plt Count 278 MPV 9.8 Absolute Nucleated RBC 0.000 Nucleated RBC % (auto) 0.0 Sodium 135 Potassium 3.6 Chloride 104 Carbon Dioxide 22 Anion Gap 13 BUN 7 L Creatinine 0.67 Estim Creat Clear Calc 88.3 Estimated GFR > 60 Fasting Glucose 86 Calcium 8.8 Iron 39 TIBC 397 % Saturation 10 L Unsat Iron Binding 358 Ferritin 4 L Vitamin B12 261 Folate 7.8 TSH 3.04 Discharge Plan Discharge Anticipated Discharge Date/Time: 06/07/24 12:27 Patient Disposition: Home Health Service Discharge Diagnosis: Constipation Referrals: Bernardo Torrez MD [Primary Care Provider] - 1 Week Discharge Medications: New magnesium hydroxide [Milk of Magnesia] 400 mg/5 mL Suspension 30 ml PO DAILY PRN (Reason: Constipation) Qty: 355 0RF Continued acetaminophen 325 mg/10.15 mL Suspension 325 - 650 mg PO DAILY PRN (Reason: Pain) norethindrone ac-eth estradiol [Aurovela 08/14 ()] 1-20 mg-mcg tablet 1 tab PO DAILY Nurtec ODT 75 mg tablet,disintegrating 75 mg PO DAILY PRN (Reason: Migraine Headache) sertraline 25 mg tablet 25 mg PO BID ondansetron 4 mg tablet,disintegrating 4 mg PO Q8H PRN (Reason: nausea/vomiting) montelukast 5 mg tablet,chewable 5 mg PO DAILY lorazepam 0.5 mg tablet 0.5 mg PO BID clonidine HCl 0.2 mg tablet 0.2 mg PO BEDTIME doxazosin 1 mg tablet 1 mg PO BEDTIME 90 Days Qty: 90 1RF Rx Instructions: Use each evening May be crushed Discharge Orders: Discharge Order (Routine); Ordered 06/07/24 Ordered By: Gregg Fernando Diet: Advance to usual diet Activity on Discharge: As tolerated Stand Alone Forms: Patient Portal Discharge page Print Language: Guatemalan Care Plan Goals: Continue all medicines as taken prior to hospital Health Concerns: Add milk of magnesia 1-2 tbsp at bedtime as needed. Follow up with PCP next available Plan of Treatment: Resume all pre-hospital care Assessment: See discharge summary
--- NOTE | 2024-06-07 12:35 | MHC.CM.PN ---
Patient has been medically cleared for dc to home today; all prior services should resume as before.
== END 2024-06-07 12:55 | disposition home or self-care (01) ==
LOC: HO.ED 15:29 → HO.EDOVER 15:49
PROVIDERS: Internal Medicine Gastroenterology; Physician Assistant Medical; Admitting Provider Internal Medicine; Emergency Provider Emergency Medicine; PCP Pediatrics; Visit Provider Hospitalist
DX: K59.00 Constipation, unspecified (principal); K92.9 Disease of digestive system, unspecified; N39.9 Disorder of urinary system, unspecified; F84.0 Autistic disorder; G80.8 Other cerebral palsy; I95.9 Hypotension, unspecified; S70.321A Blister (nonthermal), right thigh, initial encounter; X58.XXXA Exposure to other specified factors, initial encounter; Y93.9 Activity, unspecified; Y92.9 Unspecified place or not applicable; Y99.9 Unspecified external cause status; Z97.8 Presence of other specified devices; Z79.899 Other long term (current) drug therapy
CPT/HCPCS: 36415; 71045; 74018; 74176; 80048; 80053; 82607; 82728; 82746; 83540; 83690; 83735; 84443; 84702; 85025; 85027; 96361; 96372; 96374; 96376; 99221; 99285; J2060

== ENCOUNTER → 2024-06-06 08:05 | Outpatient (BNV) | payer MEDICARE, MEDICAID, SELFPAY | PROVIDERS: Emergency Provider Emergency Medicine; PCP Pediatrics; Visit Provider Radiology Diagnostic Radiology | DX: K59.00 Constipation, unspecified (principal); Z97.8 Presence of other specified devices | CPT/HCPCS: 71045; 74176 ==

== ENCOUNTER → 2024-06-06 08:19 | Outpatient (BNV) | payer MEDICARE, MEDICAID, SELFPAY | PROVIDERS: Emergency Provider Emergency Medicine; PCP Pediatrics; Visit Provider Internal Medicine | DX: K59.00 Constipation, unspecified (principal); K92.9 Disease of digestive system, unspecified; N39.9 Disorder of urinary system, unspecified | CPT/HCPCS: 99222; 99239 ==

== ENCOUNTER → 2024-06-06 15:24 | Outpatient (BNV) | payer MEDICARE, MEDICAID, SELFPAY | PROVIDERS: Admitting Provider Internal Medicine; Emergency Provider Emergency Medicine; PCP Pediatrics; Visit Provider Internal Medicine Gastroenterology | DX: K59.00 Constipation, unspecified (principal); K92.9 Disease of digestive system, unspecified; N39.9 Disorder of urinary system, unspecified | CPT/HCPCS: 99222 ==

== ENCOUNTER 2024-06-28 13:07 | Emergency (ER) | payer MEDICARE, MEDICAID, SELFPAY ==
--- NOTE | ~2024-06-28 | XR_ITS ---
EXAMINATION: XR ABDOMEN KUB CLINICAL INDICATION: Constipation COMPARISON: X-ray dated June 07, 2024. TECHNIQUE: AP view of the abdomen. FINDINGS: Abundant stool in the right hemicolon. Gas throughout the intestine. No intestinal dilatation. No air-fluid levels. There are shadow projects below the rib cage. S-shaped curvature of the lumbar spine which could be positional. No gross acute airspace disease in the lung bases. Spina bifida occulta S1.. XR/XR KUB IMPRESSION: Abundant stool without intestinal obstruction pattern. Questionable hepatomegaly, mild.. Electronically signed by: Sujit Connor MD 06/28/2024 03:25 PM [facility]
[2024-06-28] MEDS: LORazepam 2 MG/ML VIAL IM (13:35)
[2024-06-28 13:55] VITALS: BMI 18.4
[2024-06-28 14:10] VITALS: BP 99/60; PULSE 81; RESP 16; O2SAT 97
[2024-06-28 14:11] LABS: Basophils Percent Auto 0.5 % (0-2); Eosinophils Percent Auto 0.3 % (0-4); Hematocrit 30.3 % (37.0-47.0); Hemoglobin 9.6 g/dl (12.0-16.0); Imm Gran Abs Auto 0.03 X10*3/uL (0.00-0.03); Imm Gran Pct Auto 0.3 % (0.0-0.4); Lymphocytes Absolute Auto 1.4 X10*3/uL (1.2-4.9); Lymphocytes Percent Auto 15.9 % (20-40); MANUAL DIFF FLAG NO; Mean Corpuscular HGB Conc 31.7 g/dl (31.0-35.0); Mean Corpuscular Hemoglobin 23.1 pg (27.0-33.0); Mean Platelet Volume 9.2 fL (9.4-12.3); Monocytes Absolute Auto 0.4 X10*3/uL (0.1-1.2); Monocytes Percent Auto 4.1 % (2-11); Neutrophils Absolute Auto 6.8 x10*3/uL (2.0-8.3); Neutrophils Percent Auto 78.9 % (45-73); Platelet Count 271 X10*3/uL (160-400); Red Blood Count 4.15 X10*6/uL (4.20-5.50); Red Cell Distribution Width 17.8 % (11.0-16.0); White Blood Count 8.6 X10*3/uL (4.8-10.8)
[2024-06-28] MEDS: Ketorolac Tromethamine 15 MG/ML VIAL IVPUSH (14:24)
[2024-06-28 14:32] LABS: Alanine Aminotransferase 13 U/L (0-31); Albumin Level 3.7 g/dL (3.5-5.0); Alkaline Phosphatase 43 U/L (39-117); Anion Gap 11 (12-20); Aspartate Amino Transferase 22 U/L (5-31); Bilirubin Direct 0.1 mg/dL (0.0-0.5); Bilirubin Total 0.5 mg/dL (0.0-1.0); Blood Urea Nitrogen 16 mg/dL (9-16); Carbon Dioxide 22 mmol/L (22-29); Chloride 111 mmol/L (96-108); Creatinine Clr Calc Pharmacy 89.8; Estimated Glomerular Filt Rate > 60; Glucose Random 142 mg/dL (60-115); Magnesium 1.9 mg/dL (1.6-2.6); Potassium 3.9 mmol/L (3.3-5.1); Sodium 140 mmol/L (135-145); Total Protein 6.6 g/dL (6.5-8.0)
--- NOTE | 2024-06-28 14:57 | PC.NURSE ---
Patient had BM in brief prior to soap suds enema. Enema given patient with moderate sized stool ball removed. Patient assisted to sit on bedside commode.
--- NOTE | 2024-06-28 15:27 | ED.ABDPAIN ---
HPI - Abdominal Pain General Chief Complaint: General Medical Stated Complaint: CONSTIPATION,H/O AUTISM PER EMS Time Seen by Provider: 06/28/24 13:28 Source: patient, family, EMS, RN notes reviewed and old records reviewed Mode of arrival: EMS History of Present Illness ED Provider: Michaela Cope PA-C HPI narrative: 24-year-old female with a past medical history of severe autism, cerebral palsy, nonverbal at baseline, chronic idiopathic constipation, presenting to ED with father complaining of constipation. Father reports patient has been seen and treated in our ED multiple times recently for similar symptoms, has been having change in behavior with increasing agitation/aggressiveness & self injuring behavior which she typically illustrates when she is experiencing pain. Report last BM yesterday. States feels the patient has gas trapped. Related Data Home Medications ?Medication ?Instructions ?Recorded ?Confirmed clonidine HCl 0.2 mg tablet 0.2 mg PO BEDTIME 12/02/22 06/06/24 lorazepam 0.5 mg tablet 0.5 mg PO BID 12/02/22 06/06/24 montelukast 5 mg chewable tablet 5 mg PO DAILY 04/06/24 06/06/24 ondansetron 4 mg disintegrating 4 mg PO Q8H PRN nausea/vomiting 04/06/24 06/06/24 tablet rimegepant 75 mg disintegrating 75 mg PO DAILY PRN Migraine 04/06/24 06/06/24 tablet (Nurtec ODT) Headache sertraline 25 mg tablet 25 mg PO BID 04/06/24 06/06/24 acetaminophen 325 mg/10.15 mL oral 325 - 650 mg PO DAILY PRN Pain 06/06/24 06/06/24 suspension norethindrone acetate 1 mg-ethinyl 1 tab PO DAILY 06/06/24 06/06/24 estradiol 20 mcg tablet (Aurovela) Previous Rx's ?Medication ?Instructions ?Recorded doxazosin 1 mg tablet 1 mg PO BEDTIME retention 90 days 06/01/24 #90 tabs magnesium hydroxide 400 mg/5 mL 30 ml PO DAILY PRN Constipation 06/07/24 oral suspension (Milk of Magnesia) #355 mL Allergies Allergy/AdvReac Type Severity Reaction Status Date / Time adhesive [ADHESIVE] Allergy Unknown HIVES Verified 06/28/24 16:31 amoxicillin [From AUGMENTIN] Allergy Unknown DIARRHEA Verified 06/28/24 16:31 clavulanic acid Allergy Unknown DIARRHEA Verified 06/28/24 16:31 [From AUGMENTIN] diphenhydramine Allergy Vomiting Verified 06/28/24 16:31 [From Benadryl] fluoxetine [From PROZAC] AdvReac Unknown BEHAVIORAL Verified 06/28/24 16:31 CHANGES Review of Systems Review of Systems Yes all other systems are reviewed and are negative Constitutional: Reports as per [facility] Past Medical History Attestation statement: The following information was validated with the patient. Source: old records reviewed Medical History Dysfunctional elimination syndrome Urinary disorder Diplegic cerebral palsy Autism Genetic disorder Social History Social History Patient Tobacco Use Status: Never used Tobacco Advance Directives: No service: No Physical Exam ED Vital Signs: Vital Signs - 24 hr 06/28/24 14:10 Pulse Rate 81 Respiratory Rate 16 Blood Pressure 99/60 Pulse Oximetry 97 Oxygen Delivery Method Room Air BMI result Body Mass Index 18.3 Const Other: Appears uncomfortable, hitting herself in the head/banging head Limitations: no limitations HENMT Head: Yes normal to inspection and Yes atraumatic Ears: hearing grossly normal bilaterally General nose exam: Normal external nose present Face and sinus: Yes normal facial exam Eyes General: appearance normal, both eyes and all related structures EOM: EOMs intact bilaterally Neck Neck: Yes normal visual inspection and Yes no meningeal signs Resp Effort & Inspection: normal respiratory effort and no respiratory distress Cardio Rate: regular rate GI Inspection: Yes normal to inspection Palpation (GI): Soft to palpation, nontender, no guarding and not rigid Skin Rashes: no rashes Wounds: no wounds Neuro General: tone normal and no meningeal signs Cranial nerves: Yes CN's II-XII intact bilaterally Gait exam (Neuro): Normal gait present Extrem General: Yes normal to inspection Course Course Course Narrative: -patient with active BM in the ED prior to enema >> father still requesting enema -labs reassuring. Baseline anemia XR KUB IMPRESSION: Abundant stool without intestinal obstruction pattern. Questionable hepatomegaly, mild. > labs and imaging discussed with father. Confirm they have GI appointment next week on Wednesday. They have abundant of medications at home for constipation. Results discussed with patient including worrisome signs and symptoms and strict return precautions, and when to return to the emergency department. They verbalized understanding and feel safe for discharge at this time. Medical Decision Making Medical Decision Making MDM Narrative: 24-year-old female with a past medical history of severe autism, cerebral palsy, nonverbal at baseline, chronic idiopathic constipation, presenting to ED with father complaining of constipation. On exam VSS, appears uncomfortable, displaying self-injurious behavior, nonverbal at baseline. Abdomen is soft nontender and nondistended. Concern for acute on chronic constipation vs fecal impaction. Lower suspicion for appendicitis/diverticulitis or pancreatitis at this time. Plan: Labs, UA, KUB, enema and GoLYTELY, re-evaluate Please refer to course for remaining clinical decision making, interpretation of labs/imaging results, and discussions with consultants and/or family members. Differential Diagnosis Differential Diagnoses: The differential diagnosis associated with the presentation includes As above Admission/Observation Consideration of admission/observation: Escalation of care including admission/observation considered Lab Data MDM Lab Attestation statement: I reviewed the patient's lab results. 06/28/24 14:07 06/28/24 14:07 Labs: Lab Results 06/28/24 06/28/24 Range/Units 14:07 16:03 WBC 8.6 (4.8-10.8) X10*3/uL RBC 4.15 L (4.20-5.50) X10*6/uL Hgb 9.6 L (12.0-16.0) g/dl Hct 30.3 L (37.0-47.0) % MCV 73.0 L (80.0-98.0) fL MCH 23.1 L (27.0-33.0) pg MCHC 31.7 (31.0-35.0) g/dl RDW 17.8 H (11.0-16.0) % Plt Count 271 (160-400) X10*3/uL MPV 9.2 L (9.4-12.3) fL Immature Gran % (Auto) 0.3 (0.0-0.4) % Neut % (Auto) 78.9 H (45-73) % Lymph % (Auto) 15.9 L (20-40) % [place] % (Auto) 4.1 (2-11) % Eos % (Auto) 0.3 (0-4) % Baso % (Auto) 0.5 (0-2) % Lymph # (Auto) 1.4 (1.2-4.9) X10*3/uL [place] # (Auto) 0.4 (0.1-1.2) X10*3/uL Eos # (Auto) 0.0 (0.0-0.4) X10*3/uL Baso # (Auto) 0.0 (0.0-0.2) X10*3/uL Abs Immat Gran (auto) 0.03 (0.00-0.03) X10*3/uL Absolute Neuts (auto) 6.8 (2.0-8.3) x10*3/uL Absolute Nucleated RBC 0.000 (0.0-0.012) X10*3/uL Nucleated RBC % (auto) 0.0 (0.0-0.2) /100WBC Sodium 140 (135-145) mmol/L Potassium 3.9 (3.3-5.1) mmol/L Chloride 111 H (96-108) mmol/L Carbon Dioxide 22 (22-29) mmol/L Anion Gap 11 L (12-20) BUN 16 (9-16) mg/dL Creatinine 0.66 (0.5-1.4) mg/dL Estim Creat Clear Calc 89.8 Estimated GFR > 60 Random Glucose 142 H (60-115) mg/dL Calcium 9.0 (8.4-10.2) mg/dL Magnesium 1.9 (1.6-2.6) mg/dL Total Bilirubin 0.5 (0.0-1.0) mg/dL Direct Bilirubin 0.1 (0.0-0.5) mg/dL AST 22 (5-31) U/L ALT 13 (0-31) U/L Alkaline Phosphatase 43 (39-117) U/L Total Protein 6.6 (6.5-8.0) g/dL Albumin 3.7 (3.5-5.0) g/dL Urine Color Yellow Urine Appearance Hazy Urine pH 7.5 (5.0-9.0) Ur Specific [place] 1.025 (1.005-1.025) Urine Protein Trace (Neg-Trace) mg/dL Urine Glucose (UA) Negative (Negative) mg/dL Urine Ketones Trace (Negative) mg/dL Urine Blood Moderate (2+) H (Negative) Urine Nitrite Negative (Negative) Ur Leukocyte Esterase Small (1+) H (Negative) Urine RBC 3-5 H (0-2) /HPF Urine WBC 21-50 H (0-5) /HPF Ur Squamous Epith Cells 11-20 (0-2) /HPF Urine Bacteria 1+ (None Seen) Hyaline Casts 0-2 (0-2) /LPF Independent Interpretation I performed an independent interpretation of an: Plain X-Ray Radiology Impression Discussion of test interpretation with radiology: I have reviewed the radiologist's reading. Independent Historian Clinical information obtained from an independent historian. History obtained from or confirmed by: Parent External Record Review External record reviewed: Inpatient record, Office record, Outpatient record, Prior outpatient labs, Prior outpatient radiology, Primary care record and Outside ED record Tests considered The following testing was considered but not selected: As above Prescription Management I considered prescription management with: Pain Medication Chronic Conditions Patient?s care impacted by: Other Social Determinants Patient?s care significantly limited by Social Determinants of Health including: Inadequate housing, Low income, Alcoholism and drug addiction in family, Problems related to primary support group, Unemployment, Problems related to employment and Other Social Determinant of Health Medications Administered Discontinued Medications Generic Name Dose Route Start Last Admin Trade Name Freq PRN Reason Stop Dose Admin Ketorolac Tromethamine 15 mg 06/28/24 14:11 06/28/24 14:24 Ketorolac Tromethamine 15 Mg/Ml Vial IVPUSH 06/28/24 14:12 15 mg ONCE ONE Administration Lorazepam 2 mg 06/28/24 13:28 06/28/24 13:35 Lorazepam 2 Mg/Ml Vial IM 06/28/24 13:29 2 mg STAT STA Administration Discharge Plan Discharge Clinical Impression: Chronic constipation Patient Disposition: Home, Self-Care Additional Instructions: Please continue milk of magnesia and other prescribed stool softeners/stimulants Make sure she is staying hydrated Please have close follow-up with PCP and gastroenterology If symptoms persist or worsen, patient is not having bowel movement in the next 48 hours, is not passing gas or has vomiting or fever return to the ED Prescriptions: No Action acetaminophen 325 mg/10.15 mL Suspension 325 - 650 mg PO DAILY PRN (Reason: Pain) norethindrone ac-eth estradiol [Aurovela 08/14 (21)] 1-20 mg-mcg tablet 1 tab PO DAILY magnesium hydroxide [Milk of Magnesia] 400 mg/5 mL Suspension 30 ml PO DAILY PRN (Reason: Constipation) Qty: 355 0RF Nurtec ODT 75 mg tablet,disintegrating 75 mg PO DAILY PRN (Reason: Migraine Headache) sertraline 25 mg tablet 25 mg PO BID ondansetron 4 mg tablet,disintegrating 4 mg PO Q8H PRN (Reason: nausea/vomiting) montelukast 5 mg tablet,chewable 5 mg PO DAILY lorazepam 0.5 mg tablet 0.5 mg PO BID clonidine HCl 0.2 mg tablet 0.2 mg PO BEDTIME doxazosin 1 mg tablet 1 mg PO BEDTIME 90 Days Qty: 90 1RF Rx Instructions: Use each evening May be crushed Referrals: [facility] [Provider Group] Bernardo Torrez MD [Primary Care Provider] - 2 days Print Language: Anguillan
[2024-06-28 16:15] LABS: Appearance Urine Hazy; Color Urine Yellow; Glucose Urine UA Negative (Negative); Leukocyte Esterase Urine Small (1+) (Negative); Nitrite Urine Negative (Negative); PH 7.5 (5.0-9.0); Specific Gravity - Urine 1.025 (1.005-1.025); UMIC TRIGGER UACC YES; Urine Blood Moderate (2+) (Negative); Urine Ketones Trace mg/dL (Negative); Urine Protein Trace mg/dL (Neg-Trace)
[2024-06-28 16:21] LABS: Bacteria Urine 1+ (None Seen); Hyaline Casts Urine 0-2 /LPF (0-2); UACC Culture Trigger YES; WBC Urine 21-50 /HPF (0-5)
[2024-06-28 16:30] VITALS: BMI 18.3
[2024-06-28 16:53] VITALS: BP 107/75; PULSE 86; RESP 16; TEMP 36.6; O2SAT 94
[2024-06-28 17:14] VITALS: BP 107/75; PULSE 86; RESP 16; TEMP 36.6; O2SAT 94
== END 2024-06-28 17:16 | disposition home or self-care (01) ==
PROVIDERS: Physician Assistant; Emergency Provider Emergency Medicine; PCP Pediatrics
DX: K59.09 Other constipation (principal); G80.8 Other cerebral palsy
CPT/HCPCS: 36415; 74018; 80048; 80076; 81001; 83735; 85025; 87086; 87147; 96372; 96374; 99284; J1885; J2060

== ENCOUNTER → 2024-06-28 13:49 | Outpatient (BNV) | payer MEDICARE, MEDICAID, SELFPAY | PROVIDERS: Emergency Provider Emergency Medicine; PCP Pediatrics; Visit Provider Radiology Diagnostic Radiology | DX: K59.00 Constipation, unspecified (principal) | CPT/HCPCS: 74018 ==

== ENCOUNTER 2024-07-05 22:41 | Emergency (ER) | payer MEDICARE, MEDICAID, SELFPAY ==
--- NOTE | ~2024-07-05 | CT_ITS ---
EXAMINATION: CT HEAD WITHOUT CONTRAST CLINICAL INFORMATION: Change in mental status. COMPARISON: None available. TECHNIQUE: Contiguous axial imaging was performed from the skull base to vertex without intravenous administration of contrast. This CT examination was performed using dose optimization techniques as appropriate, variously including the following: *Automated exposure control *Adjustment of mA and/or kV according to patient size (this includes techniques or standardized protocols for targeted exams where dose is matched to indication/reason for exam; i.e. extremities or head) *Use of iterative reconstruction technique DLP: 527 mGy-cm FINDINGS: No intracranial hemorrhage, tumors or acute infarcts identified. The ventricles and sulci are normal in size and configuration. No focal parenchymal lesions of the brain or abnormal extra-axial fluid collections identified. Normal appearance of the orbits and globes. No extracranial soft tissue inflammatory changes. No significant opacification of the visualized paranasal sinuses, mastoid air cells and middle ear cavities. CT/CT head/brain wo IV con IMPRESSION: Normal unenhanced CT of the head. Electronically signed by: Brent Garcia MD 07/06/2024 03:40 AM EST
--- NOTE | ~2024-07-05 | XR_ITS ---
EXAMINATION: XR ABDOMEN KUB CLINICAL INDICATION: constipation COMPARISON: Abdominal radiograph 06/28/2024. TECHNIQUE: AP view of the abdomen. FINDINGS: Moderate quantity of stool is present in the ascending colon. Gas is noted within the transverse colon which is normal in caliber. Scattered gas is noted in the descending colon which appears normal in caliber. No gross free intraperitoneal gas. The visualized left lung base is clear. Moderate physiologic appearing gas within the stomach. XR/XR KUB IMPRESSION: Moderate quantity of stool within the ascending colon. The overall colonic stool burden appears decreased compared with 06/28/2024. No intestinal dilatation to suggest obstruction. Electronically signed by: Brent Garcia MD 07/06/2024 02:42 AM [facility]
[2024-07-05 23:46] VITALS: BP 139/74; PULSE 82; RESP 18; TEMP 36.4; O2SAT 97; BMI 22.1
--- NOTE | 2024-07-06 00:48 | ED.GENADULT ---
HPI - General Adult General Chief complaint: General Medical Stated complaint: ?constipation Time Seen by Provider: 07/06/24 00:10 Source: patient, family, EMS and old records reviewed Mode of arrival: EMS Limitations: other History of Present Illness ED Provider: SMITA CARIAS narrative: 24 yo female with PMH of CP, autism, non-verbal who was just admitted here for constipation s/p NG tube for golytely 06/06-06/07 comes back with father joseph with c/o being agitated today head baning and hitting herself in the head. She had one hard stool with just small pieces and then passed another - s/p suppository and colace today. Father is unclear what is bothering her but states she must be in pain. No trauma reported. He is worried something is wrong with her head and asking for head CT. complaint: agitation Onset (ago): hour(s) (several) Severity: moderate Relieving factors: none Exacerbating factors: none Associated symptoms: denies other symptoms Treatments prior to arrival: none Related Data Home Medications ?Medication ?Instructions ?Recorded ?Confirmed clonidine HCl 0.2 mg tablet 0.2 mg PO BEDTIME 12/02/22 06/06/24 lorazepam 0.5 mg tablet 0.5 mg PO BID 12/02/22 06/06/24 montelukast 5 mg chewable tablet 5 mg PO DAILY 04/06/24 06/06/24 ondansetron 4 mg disintegrating 4 mg PO Q8H PRN nausea/vomiting 04/06/24 06/06/24 tablet rimegepant 75 mg disintegrating 75 mg PO DAILY PRN Migraine 04/06/24 06/06/24 tablet (Nurtec ODT) Headache sertraline 25 mg tablet 25 mg PO BID 04/06/24 06/06/24 acetaminophen 325 mg/10.15 mL oral 325 - 650 mg PO DAILY PRN Pain 06/06/24 06/06/24 suspension norethindrone acetate 1 mg-ethinyl 1 tab PO DAILY 06/06/24 06/06/24 estradiol 20 mcg tablet (Aurovela) Previous Rx's ?Medication ?Instructions ?Recorded doxazosin 1 mg tablet 1 mg PO BEDTIME retention 90 days 06/01/24 #90 tabs magnesium hydroxide 400 mg/5 mL 30 ml PO DAILY PRN Constipation 06/07/24 oral suspension (Milk of Magnesia) #355 mL Allergies Allergy/AdvReac Type Severity Reaction Status Date / Time adhesive [ADHESIVE] Allergy Unknown HIVES Verified 07/05/24 23:49 amoxicillin [From AUGMENTIN] Allergy Unknown DIARRHEA Verified 07/05/24 23:49 clavulanic acid Allergy Unknown DIARRHEA Verified 07/05/24 23:49 [From AUGMENTIN] diphenhydramine Allergy Vomiting Verified 07/05/24 23:49 [From Benadryl] fluoxetine [From PROZAC] AdvReac Unknown BEHAVIORAL Verified 07/05/24 23:49 CHANGES Review of Systems Review of Systems: ROS unable to be obtained due to non-verbal PMFSH Past Medical History Attestation statement: The following information was validated with the patient. Source: old records reviewed Medical History Dysfunctional elimination syndrome Urinary disorder Diplegic cerebral palsy Autism Genetic disorder Social History Social History Alcohol intake: never Patient Tobacco Use Status: Never used Tobacco Smoked in Last 30 Days: No Use of substances other than those prescribed or required for medical reasons: No Advance Directives: Yes Advance Directives Information Provided: Yes Advance Directives on File: No Do you have a plan to hurt others: No Plan Patient : No service: No Physical Exam ED Vital Signs: Vital Signs - 24 hr 07/05/24 23:46 07/06/24 01:41 07/06/24 03:10 Temperature 97.5 F Pulse Rate 85 70 Respiratory Rate 18 16 14 Blood Pressure 139/74 100/46 L 94/54 L Pulse Oximetry 97 97 Oxygen Delivery Method Room Air Room Air 07/06/24 05:42 Temperature 97 F Pulse Rate 68 Respiratory Rate 16 Blood Pressure 107/72 Pulse Oximetry 100 Oxygen Delivery Method Room Air BMI result Body Mass Index 22.1 Appearance: Alert. at baseline and calm when I saw her No acute distress. initially yelling and slapping herself on arrival to the ED Eyes: Pupils equal, round and reactive to light. abrasion on forehead ENT: Pharynx normal. TMs normal Neck: Normal inspection. Neck supple. CVS: Normal heart rate and rhythm. Pulses normal. Respiratory: No respiratory distress. Breath sounds normal. Abdomen: Soft and nontender. does not grimace, BS present Skin: Skin warm and dry. pale skin color. Normal skin turgor. Extremities: No lower extremity edema. Neuro: contracted, calm, seems to interact with father Course Course Course Narrative: still appears in pain IM ativan total 3mg for comfort Reevaluation(s) Reevaluation #1: no issues for 4 hours calm no yelling or banging post medications Medications Administered Discontinued Medications Generic Name Dose Route Start Last Admin Trade Name Allan PRN Reason Stop Dose Admin Lorazepam 0.5 mg 07/06/24 00:21 07/06/24 01:31 Lorazepam 0.5 Mg Tablet PO 07/06/24 00:22 Not Given ONCE ONE Lorazepam 1 mg 07/06/24 00:57 07/06/24 01:03 Lorazepam 2 Mg/Ml Vial IM 07/06/24 00:58 1 mg STAT STA Administration Lorazepam 2 mg 07/06/24 01:20 07/06/24 01:26 Lorazepam 2 Mg/Ml Vial IM 07/06/24 01:21 2 mg STAT STA Administration Medical Decision Making Medical Decision Making [facility] Narrative: 24 yo female with PMH of CP, autism, non-verbal who was just admitted here for constipation s/p NG tube for golytely 06/06-06/07 here with signs of agitation at this time will need basic labs, KUB, CT head, UA and further workup for very undifferentiated agitation. PO ativan and IM ativan until she is more calm Differential Diagnosis Differential Diagnoses: The differential diagnosis associated with the presentation includes agitation, constipation, CP Admission/Observation Consideration of admission/observation: Escalation of care including admission/observation considered Lab Data [facility] Lab Attestation statement: I reviewed the patient's lab results. 07/06/24 01:44 07/06/24 01:44 Labs: Lab Results 07/06/24 07/06/24 Range/Units 01:44 05:17 WBC 9.9 (4.8-10.8) X10*3/uL RBC 4.37 (4.20-5.50) X10*6/uL Hgb 10.0 L (12.0-16.0) g/dl Hct 30.8 L (37.0-47.0) % MCV 70.5 L (80.0-98.0) fL MCH 22.9 L (27.0-33.0) pg MCHC 32.5 (31.0-35.0) g/dl RDW 17.0 H (11.0-16.0) % Plt Count 344 D (160-400) X10*3/uL MPV 8.9 L (9.4-12.3) fL Immature Gran % (Auto) 0.3 (0.0-0.4) % Neut % (Auto) 73.3 H (45-73) % Lymph % (Auto) 19.4 L (20-40) % [place] % (Auto) 6.6 (2-11) % Eos % (Auto) 0.1 (0-4) % Baso % (Auto) 0.3 (0-2) % Lymph # (Auto) 1.9 (1.2-4.9) X10*3/uL [place] # (Auto) 0.7 (0.1-1.2) X10*3/uL Eos # (Auto) 0.0 (0.0-0.4) X10*3/uL Baso # (Auto) 0.0 (0.0-0.2) X10*3/uL Abs Immat Gran (auto) 0.03 (0.00-0.03) X10*3/uL Absolute Neuts (auto) 7.3 (2.0-8.3) x10*3/uL Absolute Nucleated RBC 0.000 (0.0-0.012) X10*3/uL Nucleated RBC % (auto) 0.0 (0.0-0.2) /100WBC Sodium 143 (135-145) mmol/L Potassium 3.3 (3.3-5.1) mmol/L Chloride 110 H (96-108) mmol/L Carbon Dioxide 19 L (22-29) mmol/L Anion Gap 17 (12-20) BUN 15 (9-16) mg/dL Creatinine 0.71 (0.5-1.4) mg/dL Estim Creat Clear Calc 99.3 Estimated GFR > 60 Random Glucose 98 (60-115) mg/dL Calcium 9.2 (8.4-10.2) mg/dL Magnesium 2.1 (1.6-2.6) mg/dL Total Bilirubin 0.6 (0.0-1.0) mg/dL Direct Bilirubin 0.1 (0.0-0.5) mg/dL AST 20 (5-31) U/L ALT 14 (0-31) U/L Alkaline Phosphatase 49 (39-117) U/L Total Protein 6.8 (6.5-8.0) g/dL Albumin 4.0 (3.5-5.0) g/dL Lipase 30 (8-78) U/L Urine Color Yellow Urine Appearance Clear Urine pH 5.5 (5.0-9.0) Ur Specific [place] >= 1.030 H (1.005-1.025) Urine Protein Trace (Neg-Trace) mg/dL Urine Glucose (UA) Negative (Negative) mg/dL Urine Ketones 15 (Negative) mg/dL Urine Blood Trace H (Negative) Urine Nitrite Negative (Negative) Ur Leukocyte Esterase Negative (Negative) Urine RBC 6-10 H (0-2) /HPF Urine WBC 6-10 H (0-5) /HPF Ur Squamous Epith Cells 0-2 (0-2) /HPF Urine Bacteria None Seen (None Seen) Hyaline Casts 0-2 (0-2) /LPF Independent Interpretation I performed an independent interpretation of an: Plain X-Ray (improved) and CT Scan (no ICH) Radiology Impression Discussion of test interpretation with radiology: I have reviewed the radiologist's reading. Independent Historian Clinical information obtained from an independent historian. History obtained from or confirmed by: Parent External Record Review External record reviewed: Inpatient record Discharge Plan Discharge Clinical Impression: Agitation Constipation Qualifiers: Constipation type: unspecified constipation type Qualified Code(s): K59.00 - Constipation, unspecified Patient Disposition: Home, Self-Care Instructions: Constipation (ED) Additional Instructions: labs and urine reassuring xray of abdomen shows no obstruction there is gas and improved stool burden CT scan no acute findings in the brain. given ativan IM 3mg today please follow up with GI doctor as planned. return if any worsening symptoms or concerns. XR/XR KUB IMPRESSION: Moderate quantity of stool within the ascending colon. The overall colonic stool burden appears decreased compared with 06/28/2024. No intestinal dilatation to suggest obstruction. Prescriptions: No Action acetaminophen 325 mg/10.15 mL Suspension 325 - 650 mg PO DAILY PRN (Reason: Pain) norethindrone ac-eth estradiol [Aurovela 08/14 (21)] 1-20 mg-mcg tablet 1 tab PO DAILY magnesium hydroxide [Milk of Magnesia] 400 mg/5 mL Suspension 30 ml PO DAILY PRN (Reason: Constipation) Qty: 355 0RF Nurtec ODT 75 mg tablet,disintegrating 75 mg PO DAILY PRN (Reason: Migraine Headache) sertraline 25 mg tablet 25 mg PO BID ondansetron 4 mg tablet,disintegrating 4 mg PO Q8H PRN (Reason: nausea/vomiting) montelukast 5 mg tablet,chewable 5 mg PO DAILY lorazepam 0.5 mg tablet 0.5 mg PO BID clonidine HCl 0.2 mg tablet 0.2 mg PO BEDTIME doxazosin 1 mg tablet 1 mg PO BEDTIME 90 Days Qty: 90 1RF Rx Instructions: Use each evening May be crushed Print Language: Turkmen
[2024-07-06] MEDS: LORazepam 2 MG/ML VIAL 1 MG IM (01:03)
[2024-07-06] MEDS: LORazepam 2 MG/ML VIAL IM (01:26)
--- NOTE | 2024-07-06 01:30 | PC.NURSE ---
Pt observed in self injurious behavior including striking her head with force repeatedly. Dad, at bedside, reports pt exhibits this kind of behavior when she is in pain. Dad is unsure where the pain is coming from. Pt medicated with Ativan IM for comfort. Pts behavior improved and is calm and relaxing at the bedside. Monitoring is ongoing.
[2024-07-06 01:41] VITALS: BP 100/46; PULSE 85; RESP 16; O2SAT 97
[2024-07-06 01:48] LABS: MANUAL DIFF FLAG NO
[2024-07-06 01:51] LABS: Basophils Percent Auto 0.3 % (0-2); Eosinophils Percent Auto 0.1 % (0-4); Hematocrit 30.8 % (37.0-47.0); Imm Gran Abs Auto 0.03 X10*3/uL (0.00-0.03); Imm Gran Pct Auto 0.3 % (0.0-0.4); Lymphocytes Absolute Auto 1.9 X10*3/uL (1.2-4.9); Lymphocytes Percent Auto 19.4 % (20-40); Mean Corpuscular HGB Conc 32.5 g/dl (31.0-35.0); Mean Corpuscular Hemoglobin 22.9 pg (27.0-33.0); Mean Corpuscular Volume 70.5 fL (80.0-98.0); Mean Platelet Volume 8.9 fL (9.4-12.3); Monocytes Absolute Auto 0.7 X10*3/uL (0.1-1.2); Monocytes Percent Auto 6.6 % (2-11); Neutrophils Absolute Auto 7.3 x10*3/uL (2.0-8.3); Neutrophils Percent Auto 73.3 % (45-73); Platelet Count 344 X10*3/uL (160-400); Red Blood Count 4.37 X10*6/uL (4.20-5.50); White Blood Count 9.9 X10*3/uL (4.8-10.8)
[2024-07-06 02:21] LABS: Alanine Aminotransferase 14 U/L (0-31); Alkaline Phosphatase 49 U/L (39-117); Anion Gap 17 (12-20); Aspartate Amino Transferase 20 U/L (5-31); Bilirubin Direct 0.1 mg/dL (0.0-0.5); Bilirubin Total 0.6 mg/dL (0.0-1.0); Blood Urea Nitrogen 15 mg/dL (9-16); Calcium 9.2 mg/dL (8.4-10.2); Carbon Dioxide 19 mmol/L (22-29); Chloride 110 mmol/L (96-108); Creatinine Clr Calc Pharmacy 99.3; Estimated Glomerular Filt Rate > 60; Glucose Random 98 mg/dL (60-115); Lipase 30 U/L (8-78); Magnesium 2.1 mg/dL (1.6-2.6); Potassium 3.3 mmol/L (3.3-5.1); Sodium 143 mmol/L (135-145); Total Protein 6.8 g/dL (6.5-8.0)
[2024-07-06 03:10] VITALS: BP 94/54; PULSE 70; RESP 14; O2SAT 97
[2024-07-06 05:24] LABS: Appearance Urine Clear; Color Urine Yellow; Glucose Urine UA Negative (Negative); Leukocyte Esterase Urine Negative (Negative); Nitrite Urine Negative (Negative); PH 5.5 (5.0-9.0); Specific Gravity - Urine >= 1.030 (1.005-1.025); UMIC TRIGGER UACC YES; Urine Blood Trace (Negative); Urine Ketones 15 mg/dL (Negative); Urine Protein Trace mg/dL (Neg-Trace)
[2024-07-06 05:31] LABS: Bacteria Urine None Seen (None Seen); Hyaline Casts Urine 0-2 /LPF (0-2); Squamous Epithelial Cell Urine 0-2 /HPF (0-2); UACC Culture Trigger YES
[2024-07-06 05:42] VITALS: BP 107/72; PULSE 68; RESP 16; TEMP 36.1; O2SAT 100
[2024-07-06 06:29] VITALS: BP 107/72; PULSE 68; RESP 16; TEMP 36.1; O2SAT 100
== END 2024-07-06 06:30 | disposition home or self-care (01) ==
PROVIDERS: Emergency Provider Emergency Medicine
DX: R41.82 Altered mental status, unspecified (principal); R45.1 Restlessness and agitation; K59.00 Constipation, unspecified; F84.0 Autistic disorder; G80.8 Other cerebral palsy; L00-L99 Diseases of the skin and subcutaneous tissue; Z79.899 Other long term (current) drug therapy
CPT/HCPCS: 36415; 70450; 74018; 80048; 80076; 81001; 83690; 83735; 85025; 87086; 96372; 99284; J2060

== ENCOUNTER 2024-12-14 15:45 | Outpatient (AMB) | payer MEDICARE, MEDICAID, SELFPAY ==
--- NOTE | 2024-12-14 15:52 | MHC.OFFVIS ---
Intake Visit Reasons: 6m follow up Intake Note: Patient is present for 6M F/U Urology Medication:DOXAZOSIN Antibiotic Allergy:AMOXICIILIN Blood Thinner:NONE Branch Service Associate Required: No Allergies adhesive [ADHESIVE] Allergy (Unknown, Verified 12/14/24 15:54) HIVES amoxicillin [From AUGMENTIN] Allergy (Unknown, Verified 12/14/24 15:54) DIARRHEA clavulanic acid [From AUGMENTIN] Allergy (Unknown, Verified 12/14/24 15:54) DIARRHEA diphenhydramine [From Benadryl] Allergy (Verified 12/14/24 15:54) Vomiting fluoxetine [From PROZAC] Adverse Reaction (Unknown, Verified 12/14/24 15:54) BEHAVIORAL CHANGES HPI Comments Details: Karen is a nonverbal developmentally delayed female. Accompanied by her parents. She is a patient of . 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 1 mg Understands that many of the issues secondary to high tone pelvic floor Father reports difficulty with urination are cyclical in nature Does appear to be related to pelvic tone Has remained on doxazosin 1 mg daily as required Otherwise successful Continue surveillance Dysfunctional elimination syndrome Longstanding - background of developmental delay with nonverbal presentation and possible cerebral palsy Estimated developmental age 18 months to 1 years Primarily constipation in nature Has episodes of difficulty with urination - with holding High tone pelvic floor Appear to be temporally related to 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 low-dose doxazosin pill which can be crushed and baclofen for muscle relaxation To be used on occasions when she appears to have exacerbation of pelvic floor spasm PFSH Medical History Dysfunctional elimination syndrome Urinary disorder Diplegic cerebral palsy Autism Genetic disorder Social History Alcohol intake: never Patient Tobacco Use Status: Never used Tobacco service: No Review of Systems Const Denies chills and Denies fever(s) Card Reports no additional complaints and Denies syncope Resp Denies cough GI Denies abdominal pain and Denies heartburn Reports as per HPI and Denies change in libido Neuro Denies syncope Psych Denies change in libido Endo Denies change in libido Physical Exam Const General: cooperative, healthy appearing, comfortable and no acute distress Orientation/consciousness: patient oriented x3 HEENT Face and sinus: Yes normal facial exam Mouth: moist mucous membranes Neck Neck: Yes normal visual inspection, Yes full ROM and Yes trachea midline Chest Chest palpation & inspection: normal inspection of the chest Resp Effort & Inspection: normal respiratory effort, able to speak in complete sentences and no respiratory distress GI Inspection: Yes normal to inspection Back/Spine/Pelvis Cervical Spine: normal cervical lordosis Thoracic/Lumbar Spine: thoracic and lumbar spine normal to inspection Skin General skin exam: no rashes or lesions noted Neuro General: patient oriented x3, gait normal, tone normal and moves all extremities Extrem General: Yes normal to inspection and Yes capillary refill normal Assessment & Plan Assessment & Plan (1) Urinary disorder: Code(s): N39.9 - Disorder of urinary system, unspecified Category: Medical Plan Six-month follow-up tele Patient Instructions: This note is constructed using voice recognition software. While every effort has been made to ensure accuracy fire alarm technician errors may have been included. Imaging studies, laboratory and physical exam results were discussed and reviewed in detail. No major barriers to patient understanding were identified. An opportunity to ask questions regarding the treatment plan was provided. All questions were answered. The patient expressed understanding and agreement with the above treatment plan. The patient is aware they should contact our office by phone for worsening of their current condition or the appearance of new urologic symptoms. Compliance is encouraged with any medications and followup testing that is ordered. It is a privilege to participate in the urologic care of your patient. If you have any questions or concerns regarding treatment for the above conditions, or other urologic issues, please do not hesitate to contact me. The office telephone contact is [phone]. Sincerely, Dr Rashaun Swenson MD, [facility] - Urology Compassionate Specialist Care for the Genitourinary System Coding Level of Care Code Est Pt Level 3 (70904) Complex EM visit Add On G2211 Diagnoses Urinary disorder N39.9
== END 2024-12-14 16:33 | disposition home or self-care (01) ==
LOC: HO.HUSH 15:45
PROVIDERS: PCP Pediatrics; Visit Provider Urology
DX: N39.9 Disorder of urinary system, unspecified (principal)
CPT/HCPCS: 99213; G2211

== ENCOUNTER → 2024-12-14 15:45 | Outpatient (BNVA) | payer MEDICARE, MEDICAID, SELFPAY | PROVIDERS: PCP Pediatrics; Visit Provider Urology | DX: N39.8 Other specified disorders of urinary system (principal) | CPT/HCPCS: 99212 ==

== ENCOUNTER 2025-06-13 15:50 | Outpatient (AMB) | payer MEDICARE, MEDICAID, SELFPAY ==
--- NOTE | 2025-06-13 15:56 | MHC.OFFVIS ---
Intake Visit Reasons: 6m follow up Intake Note: Patient Is Present for Follow Up Urology Med: Doxazosin Antibiotic Allergy: Amoxicillin Blood Thinner: None Lacing Operator Required: No Allergies adhesive (ADHESIVE) Allergy (Unknown, Verified 06/13/25 15:58) HIVES amoxicillin (From AUGMENTIN) Allergy (Unknown, Verified 06/13/25 15:58) DIARRHEA clavulanic acid (From AUGMENTIN) Allergy (Unknown, Verified 06/13/25 15:58) DIARRHEA diphenhydramine (From Benadryl) Allergy (Verified 06/13/25 15:58) Vomiting fluoxetine (From PROZAC) Adverse Reaction (Unknown, Verified 06/13/25 15:58) BEHAVIORAL CHANGES HPI Comments Details: Karen is a nonverbal developmentally delayed female. She is a patient of . She is seen for the following urologic conditions - dysfunctional elimination syndrome Accompanied by her father He states her behaviors have been consistent The use the doxazosin on a PRN basis Basically if she does not void after coming back from the day program they will give her doxazosin They have a protocol for bowel habits Continue surveillance yearly Dysfunctional elimination syndrome Longstanding - background of developmental delay with nonverbal presentation and possible cerebral palsy Estimated developmental age 18 months to 1 years Primarily constipation in nature Has episodes of difficulty with urination - with holding High tone pelvic floor Appear to be temporally related to 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 low-dose doxazosin pill which can be crushed and baclofen for muscle relaxation To be used on occasions when she appears to have exacerbation of pelvic floor spasm PFSH Medical History Dysfunctional elimination syndrome Urinary disorder Diplegic cerebral palsy Autism Genetic disorder Social History Alcohol intake: never Patient Tobacco Use Status: Never used Tobacco service: No Review of Systems Const Denies chills and Denies fever(s) Card Reports no additional complaints and Denies syncope Resp Denies cough GI Denies abdominal pain and Denies heartburn Reports as per HPI and Denies change in libido Neuro Denies syncope Psych Denies change in libido Endo Denies change in libido Physical Exam Const General: cooperative, healthy appearing, comfortable and no acute distress Orientation/consciousness: patient oriented x3 HEENT Face and sinus: Yes normal facial exam Mouth: moist mucous membranes Neck Neck: Yes normal visual inspection, Yes full ROM and Yes trachea midline Chest Chest palpation & inspection: normal inspection of the chest Resp Effort & Inspection: normal respiratory effort, able to speak in complete sentences and no respiratory distress GI Inspection: Yes normal to inspection Back/Spine/Pelvis Cervical Spine: normal cervical lordosis Thoracic/Lumbar Spine: thoracic and lumbar spine normal to inspection Skin General skin exam: no rashes or lesions noted Neuro General: patient oriented x3, gait normal, tone normal and moves all extremities Extrem General: Yes normal to inspection and Yes capillary refill normal Assessment & Plan Assessment & Plan (1) Urinary disorder: Code(s): N39.9 - Disorder of urinary system, unspecified Category: Medical Plan Twelve month follow-up Refill doxazosin Medications: Refilled doxazosin Use each evening May be crushed 1 mg PO BEDTIME 90 tabs 1RF retention 90 days K92.9 - Disease of digestive system, unspecified, N39.9 - Disorder of urinary system, unspecified Patient Instructions: This note is constructed using voice recognition software. While every effort has been made to ensure accuracy sample preparation supervisor errors may have been included. Imaging studies, laboratory and physical exam results were discussed and reviewed in detail. No major barriers to patient understanding were identified. An opportunity to ask questions regarding the treatment plan was provided. All questions were answered. The patient expressed understanding and agreement with the above treatment plan. The patient is aware they should contact our office by phone for worsening of their current condition or the appearance of new urologic symptoms. Compliance is encouraged with any medications and followup testing that is ordered. It is a privilege to participate in the urologic care of your patient. If you have any questions or concerns regarding treatment for the above conditions, or other urologic issues, please do not hesitate to contact me. The office telephone contact is [phone]. Sincerely, Dr Rashaun Swenson MD, [facility] - Urology Compassionate Specialist Care for the Genitourinary System Coding Level of Care Code Est Pt Level 3 (67275) Complex EM visit Add On G2211 Diagnoses Urinary disorder N39.9
--- OUTSIDE RECORDS SUMMARY | 2025-06-14 04:28 | XMS_ITS | Clinical Summary ---
Author Organization [facility] Address [address] [facility] [address] [place] [address] Phone Care Team Providers Care Stamp Maker Name Role Phone Veto Mortensen MD Unavailable [phone] Vincent Eisenberg MD Unavailable Bernardo Torrez MD Primary Care Provider [phone] Bernardo Torrez MD Unavailable [phone] Allergies Active Allergy Reactions Criticality Noted Date Comments Amoxicillin-Pot Clavulanate 08/29/19 19 Other reaction(s): Diarrhea symptoms diarrhea Diphenhydramine Hcl 08/29/2018 Other reaction(s): GI upset Vomiting Fluoxetine 09/03/2021 Other reaction(s): twitchy Midazolam 09/03/2021 hyperactive Adhesive Rash Low 08/29/2018 EEG adhesive Medications sucralfate (CARAFATE) 1 gram tabletIndications: Gastroesophageal reflux disease without esophagitis 1 TABLET BY MOUTH 3 TIMES A DAY BEFORE MEALS AND BEDTIME 07/31/19 22 Active LORazepam (ATIVAN) 0.5 MG tabletIndications: Anxiety Take 1 mg by mouth 2 (two) times a day. 07/03/20 21 Active ibuprofen (MOTRIN,ADVIL) 40 mg/mL DrpS Take 10 mg/kg by mouth. Active glycerin, adult, SuppIndications:Ch ronic constipation Place 1 suppository rectally. Active bisacodyl (FLEET) 10 mg/30 mL EnemIndications:Ch ronic constipation Place 10 mg rectally. Active acetaminophen (TYLENOL) 160 mg/5 mL (5 mL) suspension Take 15 mg/kg by mouth. Active simethicone 20 mg/0.3 mL SyrgIndications:Ch ronic constipation,Gastr oesophageal reflux disease without esophagitis Take by mouth. 07/14/20 Active sodium chloride (CHILDREN'S SALINE NASAL SPRAY NASL) 1 spray by Nasal route daily as needed. Active fluticasone propionate (FLONASE) 50 mcg/actuation nasal spray Daily, 0 Refills, Maintenance, 07/14/21 15:45:00 EST, Partial fill upon patient request if the prescription is for a schedule II opioid drug. 07/14/20 Active lansoprazole (PREVACID SOLUTAB) 30 MG disintegrating tabletIndications: Gastroesophageal reflux disease without esophagitis Take 30 mg by mouth daily. Active cloNIDine HCL (CATAPRES) 0.2 MG tablet Take 1 tablet by mouth every morning. 12/15/19 23 Active baclofen (LIORESAL) 5 mg tablet 12/03/19 23 Active montelukast (SINGULAIR) 5 MG chewable tabletIndications: Allergic rhinitis, unspecified seasonality, unspecified trigger Take 1 tablet (5 mg total) by mouth nightly at bedtime. 90 tablet 3 02/02/20 23 Active ondansetron (ZOFRAN-ODT) 4 MG disintegrating tabletIndications: Menstrual migraine without status migrainosus, not intractable TAKE 1 TABLET BY MOUTH EVERY 8 HOURS. 90 tablet 1 09/20/19 24 Active NURTEC ODT 75 mg tablet Take 75 mg by mouth. 10/12/19 24 Active doxazosin (CARDURA) 1 MG tablet 06/01/20 24 Active sertraline (ZOLOFT) 25 MG tablet Take 1 tablet by mouth 2 (two) times a day. 05/09/20 24 Active norethindrone-ethi nyl estradiol (AUROVELA ,) 1-0.02 mg per tabletIndications: Dysmenorrhea Take 1 tablet by mouth daily. 84 tablet 3 09/05/19 25 Active magnesium hydroxide (MOM) 400 mg/5 mL Susp Take by mouth. Active SITagliptin phosphate (JANUVIA) 25 MG tablet Take 25 mg by mouth. Active cholecalciferol (D DROPS) 25 mcg/drop ( 1000 unit/drop) oral drops Take 2 drops (2,000 Units total) by mouth daily. 240 mL 11 04/11/20 25 Active Active Problems Problem Noted Date Diagnosed Date Anemia 06/25/2024 Assessment & Plan (06/25/2024 7:52 PM EST): Outside CBC shows a hemoglobin of 10.8, microcytic suggesting iron deficiency. This has been trending down and comparing her blood count over the past 2 years. It was normal at 12.2 in 2021 then a few months ago hemoglobin was 11. Further GI workup appropriate to assess for possible blood loss anemia. Choking due to food (regurgitated), subsequent e ncounter 11/24/2023 Assessment & Plan (11/24/2023 2:43 PM EDT): Patient had a choking incident at day program, resolved with Heimlich maneuver. No loss of consciousness or respiratory distress. No signs of aspiration pneumonia or injury from Heimlich maneuver on examination. -Advise caregivers to monitor for signs of aspiration pneumonia including increased coughing, difficulty breathing, fever, etc. -Provide note for return to day program. Menstrual migraine without s tatus migrainosus, not intractable 04/25/2023 Assessment & Plan (06/05/2025 11:13 PM EST): Recent blinking suggested to be migraine related. Followed by neurology, started on Januvia, off label, not clearly beneficial in groups without diabetes. May increase risks for UTI/perineal infection. Assessment & Plan (04/23/2024 1:55 PM EDT): Recent problem, may consider lower dose EE with OCP management. She is also followed by neuro, on Nurtec. Assessment & Plan (04/25/2023 10:07 PM EDT): May use ondansetron ODT for nausea associated with other clinical symptoms of migrain in conjunction with sumatriptan. Dysphagia 09/14/2021 Overview (09/14/2021): Can take chewable tablets, crushed tablets or liquid meds by mouth Eats all her meals by mouth, history of NG tube in the past but no G-tubes Has a speech therapist per Mom Assessment & Plan (06/04/2025 11:21 AM EST): Wheelchair dependence 09/14/2021 Assessment & Plan (06/04/2025 11:21 AM EST): Assessment & Plan (02/08/2025 8:39 AM EDT): Assessment & Plan (06/04/2024 9:28 PM EST): Assessment & Plan (04/23/2024 1:50 PM EDT): Stable with custom wheelchair. Spastic diplegic cerebral palsy 09/03/2021 Overview (04/23/2024): Spastic diplegia. Nonverbal at baseline Assessment & Plan (02/08/2025 8:39 AM EDT): Assessment & Plan (12/26/2024 8:34 PM EDT): Assessment & Plan (06/04/2024 9:28 PM EST): Assessment & Plan (04/23/2024 1:48 PM EDT): Stable exam History of anemia as a child 09/03/2021 Overview (09/03/2021): Lead poisoning iron deficiency anemia. Was given supplemental iron but lead levels were not high enough to require chelation therapy per dad Assessment & Plan (04/23/2024 1:49 PM EDT): Prior hx of anemia, check cbc Intellectual disability 09/03/2021 Overview (09/14/2021): Nonverbal at baseline Assessment & Plan (06/04/2025 11:21 AM EST): Assessment & Plan (02/08/2025 8:39 AM EDT): Assessment & Plan (12/26/2024 8:34 PM EDT): Assessment & Plan (04/23/2024 1:50 PM EDT): Severe cognitive impairment, nonverbal at baseline, dependent on caregivers for all ADLs. Autism 08/29/2018 Assessment & Plan (06/25/2024 7:52 PM EST): Nonverbal, ancillary history given by parents. Today she is exhibiting signs of discomfort with exam which is unusual. Assessment & Plan (04/23/2024 1:48 PM EDT): Day program services, ;parents are multimedia editor caregivers. Chronic constipation 08/29/2018 Overview (09/03/2021): Requiring frequent hospitalizations for cleanouts. Assessment & Plan (06/04/2025 11:21 AM EST): Assessment & Plan (12/26/2024 8:34 PM EDT): - Currently on Linzess, initially effective but now less so. Continues to use suppositories and other routine regimens. Urologist suspects urinary retention may be related to constipation and menstrual cycle. Assessment & Plan (07/15/2024 6:52 PM EST): Ongoing difficulty with constipation, starting Linzess per GI. Reasonable to keep her home with trial of Linzess. Assessment & Plan (06/25/2024 7:52 PM EST): Recommend trial of magnesium citrate. If ineffective review further with GI. Orders: CBC and differential; Future Assessment & Plan (06/04/2024 9:28 PM EST): Mag citrate is a good idea, continue bowel regimen. Assessment & Plan (04/23/2024 1:49 PM EDT): Stable, managing with dulcolax daily, suppositories a few times a week. Assessment & Plan (12/27/2022 9:21 PM EDT): Currently managed with docusate enema via bulb syringe to 3 times per week. May require more frequent bowel regiment if continued vomiting. Assessment & Plan (09/03/2021 1:31 PM EST): IBS-C, formerly followed with 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 Also following with Dr. Mortensen at [facility]. -Miralax daily, glycerin suppositories GERD (gastroesophageal reflux disease) 9 Assessment & Plan (12/26/2024 8:34 PM EDT): Experiences reflux symptoms despite being on Prevacid. Symptoms could be related to migraines or seizures, although seizures were previously ruled out. No vomiting reported, but frequent blinking and squeezy looking. Prevacid and migraine medication are being used to manage symptoms. Assessment & Plan (06/25/2024 7:52 PM EST): Mild thickening of the distal esophagus noted on the CT scan of the abdomen pelvis. This may reflect esophagitis. This may be a reason for why she is exhibiting some physical signs of discomfort. Recommend lansoprazole 30 mg daily, in addition to sucralfate. See GI for consultation and management. Orders: External Referral to Gastroenterology ([facility]) Assessment & Plan (04/23/2024 1:49 PM EDT): Check labs, stable symptoms. Assessment & Plan (12/27/2022 9:22 PM EDT): Encouraged to resume PPI therapy given vomiting today. Parents are not sure that it was helping so they stopped PPI and Carafate. Assessment & Plan (09/03/2021 1:42 PM EST): Following with GI On Prevacid Anxiety 08/29/2018 Overview (09/14/2021): Was following with Dr. Vincent Eisenberg neurologist, who prescribes lorazepam, and clonidine qHS. History of self-harming- hitting behaviors, head banging. Assessment & Plan (06/04/2025 11:21 AM EST): Resolved Problems Problem Noted Date Diagnosed Date Resolved Date Acute cough 08/13/2023 04/23/2024 Assessment & Plan (08/13/2023 9:56 AM EST): Pt unable to tolerate testing for flu/covid in office. Home COVID negative. Likely secondary to URI vs PND. Encouraged use of flonase, continued humidifier use in room and house. Call if symptoms persist or worsen or if fever develops. Overall reassuring exam today. Parents verbalized understanding, agreeable to plan. Allergic rhinitis 12/27/2022 09/07/2024 Assessment & Plan (12/27/2022 9:18 PM EDT): Very likely allergic rhinitis with postnasal drip triggering some of her gag reflex symptoms and vomiting. Trial of montelukast. Skin lesion of back 09/14/2021 09/07/19 Assessment & Plan (09/14/2021 11:42 AM EST): Likely laura k. Reassurance provided. Mom requests referral to dermatology Skin lesion of neck 09/14/2021 09/07/19 Assessment & Plan (09/14/2021 11:43 AM EST): Acrochordon. Reassurance provided. Mom requests referral to dermatology. Secondary oligomenorrhea 09/03/2021 Overview (09/03/2021): Menses- at least 4 or more yearly Assessment & Plan (12/27/2022 9:24 PM EDT): Encouraged treatment as per CORRECTIONAL FACILITY NURSE Iron deficiency anemia due to dietary causes 9 09/03/2021 Encounters Date Type Department Care Team Description 06/04/2025 10:45 AM EST Office Visit [address] [place] [address] Bernardo Torrez MD Medicare annual wellness visit, subsequent (Primary Dx); Quadriplegic cerebral palsy; Menstrual migraine without status migrainosus, not intractable; Intellectual disability; Wheelchair dependence; Chronic constipation; Dysphagia, unspecified type; Anxiety; Need for influenza vaccination 05/25/[address] [place] [address] Bernardo Torrez MD Triage (Green - Sneezing) 05/08/[address] [place] [address] Bernardo Torrez MD Forms & Paperwork 04/11/[address] [place] [address] Bernardo Torrez MD Med Change Request from Last 3 Months Immunizations Immunization Administration Dates Next Due DTaP 08/15/2003, 9,1998,07/31,1998 DMbN-Pwa-APH 07/16/1999, 9,1998,06/04 Flu H1n1 Tiv Preservative Free 06/04/2009 HPV9 03/15/2019,01/05/2019,01/28/2017 Hepatitis B 02/05/1999,1998,1998 INFLUENZA, SPLIT VIRUS, TRIVALENT PF 06/04/2025, 04/30/2016 INFLUENZA, SPLIT VIRUS, TRIV ALENT W/ PRESERVATIVE IM 05/08/2018 IPV 08/15/2003,1998,1998 Influenza Quadrivalent Prese rvative Free IM 06/22/2022,05/21/2021,06/13/2020,06/12 MMR 09/29/2002,04/16/1999 Meningococcal MCV4P 04/30/2016,03/17/2010 Pneumococcal conjugate PCV13 05/03/2004 Polio - OPV 04/16/1999 Rotavirus,pentavalent 02/05/1999,1998,12/1998 Tdap 01/05/2019,11/27/2008 Varicella 11/27/2008,04/16/1999 Family History Medical History Relation Comments Asthma Father Diabetes Father Hyperlipidemia Father Hypertension Father Asthma Mother Bipolar disorder Mother Diabetes Mother Hyperthyroidism Mother Obesity Mother Polycystic ovary syndrome Mother Relation Status Comments Father Alive Mother Alive Social History Tobacco Use Types Packs/Day Years Used Date Smoking Tobacco: Never Smokeless Tobacco: Never Tobacco Cessation:Counseling Given: Not Answered Alcohol Use Standard Drinks/Week Comments Never 0 (1 standard drink = 0.6 oz pur e alcohol) Child or Family Care Answer Date Record ed Do you have problems with on e of the following making it difficult for you to work, study, or receive health care? No 09/03/2021 Education Answer Date Recorded Are you interested in more education? Not on mily e 09/04/2023 Are you concerned about learning? Not on file 09/04/2023 No 09/04/2023 No 09/04/2023 Food Answer Date Recorded Within the past 6 months we worried whether our food would run out before we got money to buy more. Never True 09/03/2021 Within the past 6 months the food we bought just didn't last and we didn't have enough money to get more. Never True Residential Stability Answer Date Recor ded What is your housing situation today? I have eliceo sing 09/03/2021 How many times have you move d in the past 12 months? Zero (I did not move) 09/03/2021 Paying for Meds Answer Date Recorded Do you have trouble paying for medicines? No 09/03/2021 Paying Utility Bills Answer Date Record ed Do you have trouble paying your heating or elect ricity bill? No 09/03/2021 Transportation Answer Date Recorded Has the lack of transportati on kept you from medical appointments or from getting medications? Yes 09/03/2021 Unemployment Answer Date Recorded Are you currently unemployed or working on a part-time or temporary basis, and looking for work? No 09/03/2021 Digital Access Answer Date Recorded No 12/18/2022 No 12/18/2022 Reliable internet access at home? Not on file 12/18/2022 Device with a working camera? Not on file Intimate Partner Violence Answer Date R ecorded Denied Basic Needs Not on file 06/04/2025 In the past 12 months have y ou been in a relationship with a person who hurts, threatens, or tries to control you? No 06/04/2025 Worried food would run out Not on file 06/04 In the past 12 months have y ou been in a relationship with a person who hurts, threatens, or tries to control you? No 06/04/2025 Comments No Sex and Gender Information Value Date Recorded Sex Assigned at Female 12/09/2021 9:38 AM EDT Legal Sex Female 8:48 PM EDT Gender Identity Female 12/09/2021 9:38 AM EDT Sexual Orientation Not on file Last Filed Vital Signs Vital Sign Reading Time Taken Comments Blood Pressure 119/82 06/04/2025 11:04 AM EST Pulse 84 06/04/2025 11:04 AM EST Temperature 36.4 C (97.5 F) 06/04/2025 11:04 AM EST Respiratory Rate 20 12/25/2024 1:04 PM EDT Oxygen Saturation 100% 06/04/2025 11:04 AM EST Inhaled Oxygen Concentration - - Weight 44 kg (97 lb) 02/07/2025 11:37 AM EDT Height 154.9 cm (5' 0.98 ) 02/07/2025 11:37 AM E DT Body Mass Index 18.34 02/07/2025 11:37 AM EDT Plan of Treatment Health Maintenance Due Date Last Done Comments PAP SMEAR 2019 DEPRESSION SCREENING 06/22/2023 06/22/2022 COVID-19 VACCINE ( season) 2025 05/21/2021, 12/04/2020, 11/06/2020 Adult Td,Tdap Booster 01/05/2029 01/05/2019, 009 HIB VACCINES Completed 07/16/1999, 09/23, 1998, Additional history exists IPV VACCINES Completed 08/15/2003, 06/26, 04/16/1999, Additional history exists PNEUMOCOCCAL VACCINES (0-49 years) Aged Out 05/03/2004 No longer eligible based on patient's age to complete this topic MENINGOCOCCAL VACCINES (ACWY) Completed 04/30/2016, 03/17/2010 HEPATITIS C SCREENING Completed 09/03/2021, 022 HIV ONE-TIME SCREENING (18-65 YEARS) Completed 09/03/2021 INFLUENZA VACCINE Completed 06/04/2025, , 06/22/2022, Additional history exists SMOKING STATUS SCREENING (Once After 26 Yrs) Completed 06/04/2025 HEPATITIS A VACCINES Aged Out No long er eligible based on patient's age to complete this topic MENINGOCOCCAL VACCINES (B) Aged Out N o longer eligible based on patient's age to complete this topic Medical Devices Not on file Procedures Procedure Name Priority Date/Time Associated Diagnosis Comments HEPATITIS C ANTIBODY, QUALITATIVE Routine 09/03/2021 2:47 PM EST Need for hepatitis C screening test from Last 3 Months or Most Recently Relevant to Health Maintenance Results * Hepatitis C antibody, qualitative (09/03/2021 2:47 PM EST) HCV NON-REACTIV E NON-REACTI VE [facility] Blood 09/03/2021 2:47 PM EST 09/03/2021 2:53 PM EST us Yesi Lyle MD LAB BLOOD BKR ORDERA BLES Final Result [facility] [address] [place] [address] from Last 3 Months or Most Recently Relevant to Health Maintenance Insurance MEDICARE PART A & [place] B [facility] MEDIC[facility] PART A & [place]ALTH MEDICARE PART A & B HEALTH MEDICARE PART A & [address] [place] [address]HEALTH MEDICARE PART A & B [facility]ICARE PART A & B [facility] Care Teams Stamp Maker Relationship Specialty Start Date End Date Bernardo Torrez MD [address] [place] [address], [address] [place] [address] PCP - General Internal Medicine 06/22/22 Veto Mortensen MD [facility] [place] [address] Pediatric Gastroenterology 09/14/21 Vincent Eisenberg MD [address] [place] [address] [place] [address] Neurology 09/14/21 Bernardo Torrez MD [address] [place] [address], [address] [place] [address] [email or web address] Insurance Assigned Provider 10/30/23 Additional Source Comments The information contained in this document represents components of the legal health record. It is not the complete legal health record.[facility]
--- OUTSIDE RECORDS SUMMARY | 2025-06-14 04:28 | XMS_ITS | Encounter Summary ---
Author Organization [facility] Address [address] [facility] [address] [place] [address] Phone Care Team Providers Care Director Emergency Department Name Role Phone Yesi Lyle MD Primary Care Provid er Veto Mortensen MD Unavailable [phone] Vincent Eisenberg MD Unavailable [phone] Bernardo Torrez MD Primary Care Provider [phone] Bernardo Torrez MD Unavailable [phone] Encounter Details Date Type Department Care Team (Late st Contact Info) Description 12/09/2021 Telephone [facility] Family Medicine [address] [place] [address] Yesi Lyle MD [address] [address] [email or web address] Social History Tobacco Use Types Packs/Day Years Used Date Smoking Tobacco: Never Smokeless Tobacco: Never Alcohol Use Standard Drinks/Week Comments Never 0 (1 standard drink = 0.6 oz pur e alcohol) Child or Family Care Answer Date Record ed Do you have problems with on e of the following making it difficult for you to work, study, or receive health care? No 09/03/2021 Education Answer Date Recorded Are you interested in help w ith more adult education (for example, completing high school, GED, job training, learning the [place] language, technical skills, or developing parenting skills)? No 09/03/2021 Are you concerned about learning? Not on file 09/03/2021 No 09/03/2021 Yes 09/03/2021 Food Answer Date Recorded Within the past [...] basis, and looking for work? No 09/03/2021 Comments Unknown Sex and Gender Information Value Date Recorded Sex Assigned at Female 12/09/2021 9:38 AM EDT Legal Sex Female 8:48 PM EDT Gender Identity Female 12/09/2021 9:38 AM EDT Sexual Orientation Not on file documented as of this encounter Plan of Treatment Not on file documented as of this encounter Visit Diagnoses Not on filedocumented in this encounter Additional Health Concerns Infection Onset Date Last Indicated Resolved Time COVID-19 09/29/2022 09/29/2022 10/20/2022 1:23 AM EDT CoV-Risk 05/31/2023 05/31/2023 06/11/2023 1:22 AM EST documented as of this encounter Care Teams Director Emergency Department Relationship Specialty Start Date End Date Yesi Lyle MD [address] [place] [id number] [email or web address] PCP - General Family Medicine 09/08/21 06/21/22 Bernardo Torrez MD [address] [place] [address], [address] [place] [address] PCP - General Internal Medicine 06/22/22 Veto Mortensen MD [address] [place] [address] Gastroenterology, [place] [address] Pediatric Gastroenterology 09/14/21 Vincent Eisenberg MD [address] [place] [address] [place] [address] Neurology 09/14/21 Bernardo Torrez MD [address] [place] [address], [address] [place] [address] [email or web address] Insurance Assigned Provider 10/30/23 documented as of this encounter Additional Source Comments The information contained in this document represents components of the legal health record. It is not the complete legal health record.[facility]
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
== END 2025-06-13 16:20 | disposition home or self-care (01) ==
LOC: HO.HUSH 15:51
PROVIDERS: PCP Pediatrics; Visit Provider Urology
DX: N39.9 Disorder of urinary system, unspecified (principal)
CPT/HCPCS: 99213; G2211

== ENCOUNTER → 2025-06-13 15:50 | Outpatient (BNVA) | payer MEDICARE, MEDICAID, SELFPAY | PROVIDERS: PCP Pediatrics; Visit Provider Urology | DX: N39.9 Disorder of urinary system, unspecified (principal) | CPT/HCPCS: 99212 ==